=== PATIENT | male | born 1980 | race Caucasian/White ===

== ENCOUNTER → 2018-03-05 08:07 | Outpatient (CLI) | payer OTHER, SELFPAY ==
--- NOTE | 2018-03-05 08:07 | DT_ITS ---
This patient was seen during an EMR downtime February 26, 2018 - March 05, 2018. This patient may have a combination of paper and electronic documentation or all paper documentation. All documentation is viewable within the e-chart portion of [facility] for each patient visit.
[2018-03-05 12:33] LABS: Cholesterol 129 mg/dL (200); High Density Lipoprotein 32 mg/dL; Triglycerides 196 mg/dL; Very Low Density Lipoprotein 39 mg/dL (5-40)
[2018-03-05 12:45] LABS: Microalbumin,Random Urine 11.2 mg/L (NO RANGE EST.); Microalbumin:Creatinine Ratio 6.3 mg/g CRE (<30 mg/g CRE)
== END ==
PROVIDERS: Family Provider Family Medicine; PCP Family Medicine; Visit Provider Family Medicine
DX: Z00.01 Encounter for general adult medical examination with abnormal findings (principal); E78.5 Hyperlipidemia, unspecified; E66.01 Morbid (severe) obesity due to excess calories; R80.9 Proteinuria, unspecified
CPT/HCPCS: 36415; 80061; 82043; 82570

== ENCOUNTER → 2018-03-08 20:00 | Outpatient (CLI) | payer OTHER, SELFPAY | PROVIDERS: Family Provider Family Medicine; PCP Family Medicine; Visit Provider Family Medicine | DX: G47.33 Obstructive sleep apnea (adult) (pediatric) (principal) | CPT/HCPCS: 95811 ==

== ENCOUNTER → 2019-01-17 08:22 | Outpatient (CLI) | payer OTHER, SELFPAY ==
[2019-01-17 12:18] LABS: Absolute Lymphocyte Count 2.24 X10^3/ul (0.83-4.51); Absolute Neutrophil Count 5.1 X10^3/uL (2.0-7.7); Basophil# 0.03 X10^3/uL; Basophil% 0.3 % (0-1); Eosinophil# 0.44 X10^3/uL; Eosinophils% 5.1 % (0-5); Hematocrit 45.4 % (40-54); Hemoglobin 15.8 g/dl (13.0-16.5); Lymphocyte # 2.24 X10^3/ul (4.0); Lymphocyte % 25.9 % (19-41); Mean Corp Hgb Conc 34.8 g/gl (32-36); Mean Corpuscular Hgb 30.1 pg (27.0-32.0); Mean Corpuscular Volume 86.5 fL (80-94); Mean Platelet Vol. 10.4 fl (6.2-12.0); Monocyte# 0.79 X10^3/uL; Monocyte% 9.1 % (0-10); Neutrophil # 5.11 X10^3/uL (2.7-7.7); Neutrophil % 59.3 % (47-70); Platelet Count 259 K/mm3 (150-450); RBC Distribution Width CV 12.9 % (11.6-14.6); RBC Distribution Width SD 40.1 fl (35.1-43.9); Red Blood Count 5.25 M/mm3 (4.6-6.2); White Blood Count 8.6 K/mm3 (4.4-11.0)
[2019-01-17 12:20] LABS: POSITIVE COUNT NO; POSITIVE DIFFERENTIAL NO; POSITIVE MORPHOLOGY NO
[2019-01-17 12:44] LABS: Anion Gap 6 (5-15); BUN 17 mg/dL (7-18); BUN/Creat Ratio 15.9 RATIO (10-20); Calcium,Total 8.7 mg/dL (8.5-10.1); Chloride 107 mmol/L (98-107); Creatinine, Serum 1.07 mg/dL (0.70-1.30); EST Glomerular Filtration Rate 83 mL/min (>60); Est Glom Filt Rate - Afr Amer 100 mL/min (>60); Glucose 102 mg/dL (74-106); Sodium Level 140 mmol/L (136-145); Thyroid Stim Hormone (TSH) 2.32 uIU/mL (0.358-3.74)
== END ==
PROVIDERS: Family Provider Family Medicine; PCP Family Medicine; Visit Provider Family Medicine
DX: I10 Essential (primary) hypertension (principal); Z51.81 Encounter for therapeutic drug level monitoring
CPT/HCPCS: 36415; 80048; 80178; 84443; 85025

== ENCOUNTER → 2019-04-19 08:27 | Outpatient (CLI) | payer OTHER, SELFPAY ==
[2019-04-19 12:59] LABS: Cholesterol 165 mg/dL (200); High Density Lipoprotein 31 mg/dL; Thyroid Stim Hormone (TSH) 2.53 uIU/mL (0.358-3.74); Triglycerides 221 mg/dL; Very Low Density Lipoprotein 44 mg/dL (5-40)
[2019-04-19 13:05] LABS: Microalbumin,Random Urine 8.7 mg/L (NO RANGE EST.); Microalbumin:Creatinine Ratio 5.8 mg/g CRE (<30 mg/g CRE)
== END ==
PROVIDERS: Family Provider Family Medicine; PCP Family Medicine; Visit Provider Family Medicine
DX: I10 Essential (primary) hypertension (principal); E78.5 Hyperlipidemia, unspecified; R80.9 Proteinuria, unspecified; Z51.81 Encounter for therapeutic drug level monitoring
CPT/HCPCS: 36415; 80061; 80178; 82043; 82570; 84443

== ENCOUNTER → 2020-07-15 08:50 | Outpatient (CLI) | payer OTHER, SELFPAY ==
[2020-07-15 12:45] LABS: Vitamin D,25 Hydroxy 16.7 ng/mL
[2020-07-15 12:51] LABS: Absolute Lymphocyte Count 2.23 X10^3/uL (0.83-4.51); Absolute Neutrophil Count 4.5 X10^3/uL (2.0-7.7); Basophil# 0.06 X10^3/uL; Basophil% 0.7 % (0-1); Eosinophil# 0.69 X10^3/uL; Eosinophils% 8.4 % (0-5); Hematocrit 46.5 % (40-54); Hemoglobin 15.4 g/dL (13.0-16.5); Lymphocyte # 2.23 X10^3/ul (4.0); Lymphocyte % 27.3 % (19-41); Mean Corp Hgb Conc 33.1 g/dL (32-36); Mean Corpuscular Volume 90.5 fL (80-94); Monocyte# 0.62 X10^3/uL; Monocyte% 7.6 % (0-10); NRBC Flagged by Analyzer 0 % (0-5); Neutrophil # 4.54 X10^3/uL (2.7-7.7); Neutrophil % 55.5 % (47-70); Platelet Count 255 K/mm3 (150-450); RBC Distribution Width SD 43.4 fl (35.1-43.9); Red Blood Count 5.14 M/mm3 (4.6-6.2); White Blood Count 8.2 K/mm3 (4.4-11.0)
[2020-07-15 13:49] LABS: AST(SGOT) 25 U/L (15-37); Alanine Aminotransfer ALT/SGPT 54 U/L (16-61); Albumin, Serum 3.8 g/dL (3.2-5.0); Alkaline Phosphatase 73 U/L (45-117); Anion Gap 7 (5-15); BUN 13 mg/dL (7-18); BUN/Creat Ratio 14.8 RATIO (10-20); Calcium,Total 8.6 mg/dL (8.5-10.1); Chloride 105 mmol/L (98-107); Cholesterol 177 mg/dL (200); Creatinine, Serum 0.88 mg/dL (0.70-1.30); EST Glomerular Filtration Rate 103 mL/min (>60); Est Glom Filt Rate - Afr Amer 125 mL/min (>60); Globulin 3.9 g/dL (2.2-4.2); Glucose 76 mg/dL (74-106); High Density Lipoprotein 40 mg/dL; Potassium 3.8 mmol/L (3.5-5.1); Protein, Total 7.7 g/dL (6.4-8.2); Sodium Level 138 mmol/L (136-145); Thyroid Stim Hormone (TSH) 1.78 uIU/mL (0.358-3.74); Triglycerides 129 mg/dL; Very Low Density Lipoprotein 26 mg/dL (5-40)
== END ==
PROVIDERS: PCP Family Medicine; Visit Provider Family Medicine
DX: Z00.00 Encounter for general adult medical examination without abnormal findings (principal); R53.83 Other fatigue
CPT/HCPCS: 36415; 80053; 80061; 82306; 84443; 85025

== ENCOUNTER → 2022-12-15 | Outpatient (CLI) | payer BC, SELFPAY ==
[2022-12-15 12:29] LABS: Absolute Lymphocyte Count 2.18 X10^3/uL (0.83-4.51); Absolute Neutrophil Count 4.7 X10^3/uL (2.0-7.7); Basophil# 0.04 X10^3/uL; Basophil% 0.5 % (0-1); Eosinophil# 0.85 X10^3/uL; Eosinophils% 10.1 % (0-5); Hematocrit 42.7 % (40-54); Hemoglobin 14.6 g/dL (13.0-16.5); Lymphocyte # 2.18 X10^3/ul (0.83-4.51); Lymphocyte % 25.9 % (19-41); Mean Corp Hgb Conc 34.2 g/dL (32-36); Mean Corpuscular Hgb 30.5 pg (27.0-32.0); Mean Corpuscular Volume 89.3 fL (80-94); Mean Platelet Vol. 9.7 fl (6.2-12.0); Monocyte# 0.67 X10^3/uL; NRBC Flagged by Analyzer 0 % (0-5); Neutrophil # 4.67 X10^3/uL (2.7-7.7); Neutrophil % 55.4 % (47-70); Platelet Count 248 K/mm3 (150-450); RBC Distribution Width CV 13.3 % (11.6-14.6); RBC Distribution Width SD 43.8 fl (35.1-43.9); Red Blood Count 4.78 M/mm3 (4.6-6.2); White Blood Count 8.4 K/mm3 (4.4-11.0)
[2022-12-15 13:07] LABS: Hemoglobin A1c 5.1 % (3.8-5.6)
[2022-12-15 13:28] LABS: AST(SGOT) 16 U/L (15-37); Alanine Aminotransfer ALT/SGPT 23 U/L (16-61); Albumin, Serum 3.7 g/dL (3.2-5.0); Alkaline Phosphatase 80 U/L (45-117); Anion Gap 6 (5-15); BUN 17 mg/dL (7-18); BUN/Creat Ratio 19.9 RATIO (10-20); Calcium,Total 9.3 mg/dL (8.5-10.1); Chloride 109 mmol/L (98-107); Cholesterol 186 mg/dL (200); Creatinine, Serum 0.85 mg/dL (0.70-1.30); EST Glomerular Filtration Rate 105 mL/min (>60); Est Glom Filt Rate - Afr Amer 127 mL/min (>60); Globulin 3.6 g/dL (2.2-4.2); Glucose 98 mg/dL (74-106); High Density Lipoprotein 33 mg/dL; Potassium 4.4 mmol/L (3.5-5.1); Protein, Total 7.3 g/dL (6.4-8.2); Sodium Level 140 mmol/L (136-145); Triglycerides 118 mg/dL; Very Low Density Lipoprotein 24 mg/dL (5-40)
== END | disposition home or self-care (01) ==
LOC: BFHLAB 10:42
PROVIDERS: PCP Family Medicine; Referring Provider Family Medicine; Visit Provider Family Medicine
DX: Z00.00 Encounter for general adult medical examination without abnormal findings (principal)
CPT/HCPCS: 36415; 80053; 80061; 83036; 85025

== ENCOUNTER → 2023-07-12 | Outpatient (CLI) | payer BC, SELFPAY ==
--- NOTE | 2023-07-11 | LES_PTH ---
PATIENT: DENISA FRIAS LOC: [facility] U#:[id number] AGE/SX: 43/M ROOM: RE07/12/[address]: Dr. Lee Hollis MD : 1980 BED: DIS: 07/12/2023 SPEC #: [id number] RECD: 07/12/23 10:01 STATUS: TIFFANY REQ #: [id number] THOMPSON: 07/11/23 00:[address]: Lee Hollis DEPT: SURGICAL PATHOLOGY RECD BY: Aviva Mcdaniel ENTERED: 07/12/23 10:27 SP TYPE: Lesion OTHR DR: Dr. Clarke Akers, DO Tissues: Skin of eyelid, NOS Procedures: Surgery Specimen Level III HEADER OPERATION: Lesion excision PRE-OP DIAGNOSIS: Increased size with vascularity TISSUE SUBMITTED: Right upper eyelid MICROSCOPIC DIAGNOSIS Right upper eyelid, biopsy: Epidermal inclusion cyst. AM:amrita 07/13/2023 MICROSCOPIC DESCRIPTION Slides are reviewed. GROSS DESCRIPTION Received in fixative is one container labeled with the patient's name and designated RUL. The specimen consists of one fragment of barton-white skin measuring 0.3 x 0.2 x 0.1 cm. The specimen is totally submitted in one cassette. / SJ:rg 07/12/2023 TC:3 CPT: 99329
== END | disposition home or self-care (01) ==
LOC: LABSPEC 10:11
PROVIDERS: PCP Family Medicine; Referring Provider Ophthalmology; Visit Provider Ophthalmology
DX: L72.0 Epidermal cyst (principal)
CPT/HCPCS: 88304; 88305

== ENCOUNTER → 2024-06-26 | Outpatient (CLI) | payer BC, SELFPAY ==
[2024-06-26 12:01] LABS: Absolute Lymphocyte Count 1.88 X10^3/uL (0.83-4.51); Absolute Neutrophil Count 3.9 X10^3/uL (2.0-7.7); Basophil# 0.05 X10^3/uL; Basophil% 0.7 % (0-1); Eosinophil# 0.59 X10^3/uL; Eosinophils% 8.3 % (0-5); Hematocrit 44.2 % (40-54); Hemoglobin 14.9 g/dL (13.0-16.5); Lymphocyte # 1.88 X10^3/ul (0.83-4.51); Lymphocyte % 26.5 % (19-41); Mean Corp Hgb Conc 33.7 g/dL (32-36); Mean Corpuscular Hgb 29.4 pg (27.0-32.0); Mean Corpuscular Volume 87.4 fL (80-94); Mean Platelet Vol. 9.9 fl (6.2-12.0); Monocyte% 8.5 % (0-10); NRBC Flagged by Analyzer 0 % (0-5); Neutrophil # 3.93 X10^3/uL (2.7-7.7); Neutrophil % 55.4 % (47-70); Platelet Count 261 K/mm3 (150-450); RBC Distribution Width CV 13.1 % (11.6-14.6); Red Blood Count 5.06 M/mm3 (4.6-6.2); White Blood Count 7.1 K/mm3 (4.4-11.0)
[2024-06-26 12:14] LABS: ALB/GLOB Ratio 0.9 RATIO (0.9-2.4); AST(SGOT) 17 U/L (15-37); Alanine Aminotransfer ALT/SGPT 22 U/L (16-61); Albumin, Serum 3.4 g/dL (3.2-5.0); Alkaline Phosphatase 70 U/L (45-117); Anion Gap 5 (5-15); BUN 11 mg/dL (7-18); BUN/Creat Ratio 11.3 RATIO (10-20); Calcium,Total 8.9 mg/dL (8.5-10.1); Chloride 108 mmol/L (98-107); Cholesterol 161 mg/dL (200); Creatinine, Serum 0.98 mg/dL (0.70-1.30); EST Glomerular Filtration Rate 90 mL/min (>60); Est Glom Filt Rate - Afr Amer 108 mL/min (>60); Globulin 3.8 g/dL (2.2-4.2); Glucose 97 mg/dL (74-106); High Density Lipoprotein 38 mg/dL; Protein, Total 7.2 g/dL (6.4-8.2); Sodium Level 139 mmol/L (136-145); Triglycerides 111 mg/dL; Very Low Density Lipoprotein 22 mg/dL (5-40)
[2024-06-26 12:31] LABS: Hemoglobin A1c 5.2 % (3.8-5.6)
== END | disposition home or self-care (01) ==
LOC: BFHLAB 09:18
PROVIDERS: PCP Family Medicine; Referring Provider Family Medicine; Visit Provider Family Medicine
DX: Z00.00 Encounter for general adult medical examination without abnormal findings (principal)
CPT/HCPCS: 36415; 80053; 80061; 83036; 85025

== ENCOUNTER → 2025-04-09 | Outpatient (CLI) | payer BC, SELFPAY ==
[2025-04-09 12:05] LABS: Hematocrit 45.0 % (40-54); Hemoglobin 15.4 g/dL (13.0-16.5); Immature Granulocytes Count 0.030 X10^3/uL (0.0-0.0); Mean Corp Hgb Conc 34.2 g/dL (32-36); Mean Corpuscular Volume 85.9 fL (80-94); Mean Platelet Vol. 10.0 fl (6.2-12.0); NRBC Flagged by Analyzer 0 % (0-5); Platelet Count 250 K/mm3 (150-450); RBC Distribution Width CV 13.2 % (11.6-14.6); RBC Distribution Width SD 41.5 fl (35.1-43.9); Red Blood Count 5.24 M/mm3 (4.6-6.2); White Blood Count 8.2 K/mm3 (4.4-11.0)
[2025-04-09 12:51] LABS: AST(SGOT) 20 U/L (<=37); Alanine Aminotransfer ALT/SGPT 23 U/L (<=46); Albumin, Serum 4.1 g/dL (3.5-5.0); Alkaline Phosphatase 71 U/L (40-129); Anion Gap 13 (5-15); BUN 13 mg/dL (4-19); BUN/Creat Ratio 14.4 RATIO (10-20); Calcium,Total 9.2 mg/dL (7.6-11.0); Carbon Dioxide 20.2 mmol/L (21.0-32.0); Chloride 104 mmol/L (98-108); Globulin 3.1 g/dL (2.2-4.2); Glucose 83 mg/dL (70-99); Potassium 3.9 mmol/L (3.3-5.1)
--- OUTSIDE RECORDS SUMMARY | 2025-04-09 18:21 | XMS RPT_ITS | CCD ---
Author Organization [facility] Care Team Providers Care Hog Buyer Name Role Phone PROVIDER, UNKNOWN Unavailable Unavailable OswaldEmily roy Unavailable Unavailable Pozsgay, Emily Unavailable Unavailable Pozsgay, Emily Unavailable Unavailable PROVIDER, UNKNOWN Unavailable Unavailable Oswald, Emily Unavailable Unavailable Pozsgay, Emily Unavailable Unavailable PROVIDER, UNKNOWN Unavailable Unavailable Oswald, Emily Unavailable Unavailable Pozsgay, Emily Unavailable Unavailable PROVIDER, UNKNOWN Unavailable Unavailable OswaldEmily roy Unavailable Unavailable OswaldEmily roy Referring Unavailable OswaldEmily Attending Unavailable OswaldEmily roy Primary Care Unavailable Allergies Allergy Classification Reported Allergen(s) Allergy Type Date of Onset Reaction(s) Facility (1 source) walnut allergenic extract Drug Allergy 09-04-2017 Swelling [facility] (2 sources) nut - unspecified; Translations: [nut - unspecified] Allergy to substance 10-25-2022 Anaphylaxis [facility] (1 source) walnut Drug allergy (disorder) 09-04-2017 [facility] Repository Problems Active Problems Problem Classification Problem Date Documented Da te Episodic/Chronic Esophageal disorders (2 sources) Gastro-esophageal reflux disease without esophagitis; Translations: [Gastro-esophageal reflux disease without esophagitis] Onset: 10-30-2017 Chronic Mood disorders (2 sources) Major depressive disorder, single episode, unspecified; Translations: [Major depressive disorder, single episode, unspecified] Onset: 10-30-2017 Other nutritional; endocrine; and metabolic disorders (2 sources) Obesity, unspecified; Translations: [Obesity, unspecified] Onset: 10-30-2017 Chronic Unclassified (6 sources) Body mass index (BMI) 45.0-49.9, adult; Translations: [Obstructive sleep apnea (adult) (pediatric)] Onset: 09-08-2017 Chronic Past or Other Problems Problem Classification Problem Date Documented Date Episodic/Chronic Appendicitis and other appendiceal conditions (4 sources) Acute appendicitis with generalized peritonitis; Translations: [Acute appendicitis with localized peritonitis] Onset: 09-08-2017 Episodic Medical examination/evaluatio n (2 sources) Encounter for other preprocedural examination; Translations: [Encounter for other preprocedural examination] Onset: 10-23-2017 Episodic Other aftercare (2 sources) skilled nursing (current) use of antibiotics; Translations: [superintendent terminal (current) use of antibiotics] Onset: 09-08-2017 Episodic Screening or history of mental health and substance abuse (2 sources) Personal history of nicotine dependence; Translations: [Personal history of nicotine dependence] Onset: 10-30-2017 Episodic Varicose veins of lower extremity (2 sources) Asymptomatic varicose veins of unspecified lower extremity; Translations: [Asymptomatic varicose veins of unspecified lower extremity] Onset: 10-30-2017 Episodic Results Test Name Value Interpretation Reference Range Facility CBC W/Diff, Automatedon 10-0 Absolute Lymph 1.88 X10 3/uL Normal 0.83-4.51 [facility] Comment on above: Performed By: #### L 501.9985, L500.4100, L100.0100, L500.4050 #### [facility] [address] [facility] [place], [address] Absolute Neut 3.9 X10 3/uL Normal 2.0-7.7 [facility] Comment on above: Performed By: #### L 501.9985, L500.4100, L100.0100, L500.4050 #### [facility] [address] [place], [address] Basophils/100 WBC (Bld) 0.7 % Normal 0-1 [facility] Comment on above: Performed By: #### L 501.9985, L500.4100, L100.0100, L500.4050 #### [facility] [address] [place], [address] Eosinophils/100 WBC (Bld) 8.3 % High 0-5 [facility] Comment on above: Performed By: #### L 501.9985, L500.4100, L100.0100, L500.4050 #### [facility] [address] [place], [address] Erythrocyte distribution width (RBC) [Ratio] 13.1 % Normal 11.6-14.6 [facility] Comment on above: Performed By: #### L 501.9985, L500.4100, L100.0100, L500.4050 #### [facility] [address] [place], [address] Hematocrit (Bld) [Volume fraction] 44.2 % Normal 40-54 [facility] Comment on above: Performed By: #### L 501.9985, L500.4100, L100.0100, L500.4050 #### [facility] [address] [place], [address] Hemoglobin (Bld) [Mass/Vol] 14.9 g/dL Normal 13.0-16.5 [facility] Comment on above: Performed By: #### L 501.9985, L500.4100, L100.0100, L500.4050 #### [facility] [address] [place], [address] IG% 0.600 Normal 0.0-0.9 [facility] Comment on above: Result Comment: IG% - Immature Granulocytes (promyelocytes, myelocytes and metamyelocytes) > 1% indicates that a LEFT SHIFT is Present. Performed By: #### L 501.9985, L500.4100, L100.0100, L500.4050 #### [facility] [address] [place], [address] Lymphocytes/100 WBC (Bld) 26.5 % Normal 19-41 [facility] Comment on above: Performed By: #### L 501.9985, L500.4100, L100.0100, L500.4050 #### [facility] [address] [place], [address] MCH (RBC) [Entitic mass] 29.4 pg Normal 27.0-32.0 [facility] Comment on above: Performed By: #### L 501.9985, L500.4100, L100.0100, L500.4050 #### [facility] [address] [place], [address] MCHC (RBC) [Mass/Vol] 33.7 g/dL Normal 32-36 [facility] Comment on above: Performed By: #### L 501.9985, L500.4100, L100.0100, L500.4050 #### [facility] [address] [place], [address] MCV (RBC) [Entitic vol] 87.4 fL Normal 80-94 [facility] Comment on above: Performed By: #### L 501.9985, L500.4100, L100.0100, L500.4050 #### [facility] [address] [place], [address] Monocytes/100 WBC (Bld) 8.5 % Normal 0-10 [facility] Comment on above: Performed By: #### L 501.9985, L500.4100, L100.0100, L500.4050 #### [facility] [address] [place], [address] Neutrophils/100 WBC (Bld) 55.4 % Normal 47-70 [facility] Comment on above: Performed By: #### L 501.9985, L500.4100, L100.0100, L500.4050 #### [facility] [address] [place], [address] Nucleated RBC (Bld) [#/Vol] 0 10*3/uL Normal 0-5 [facility] Comment on above: Performed By: #### L 501.9985, L500.4100, L100.0100, L500.4050 #### [facility] [address] [place], [address] Platelet mean volume (Bld) [Entitic vol] 9.9 fL Normal 6.2-12.0 [facility] Comment on above: Performed By: #### L 501.9985, L500.4100, L100.0100, L500.4050 #### [facility] [address] [place], [address] Platelets (Bld) [#/Vol] 261 10*3/uL Normal 150-450 [facility] Comment on above: Performed By: #### L 501.9985, L500.4100, L100.0100, L500.4050 #### [facility] [address] [place], [address] RBC (Bld) [#/Vol] 5.06 10*6/uL Normal 4.6-6.2 [facility] Comment on above: Performed By: #### L 501.9985, L500.4100, L100.0100, L500.4050 #### [facility] [address] [place], [address] RDW SD 42.0 fl Normal 35.1-43.9 [facility] Comment on above: Performed By: #### L 501.9985, L500.4100, L100.0100, L500.4050 #### [facility] [address] [place], [address] WBC (Bld) [#/Vol] 7.1 10*3/uL Normal 4.4-11.0 [facility] Comment on above: Performed By: #### L 501.9985, L500.4100, L100.0100, L500.4050 #### [facility] [address] [place], [address] Comprehensive Metabolic Prof ilon 06-26-2024 Albumin [Mass/Vol] 3.4 g/dL Normal 3.2-5.0 [facility] Comment on above: Performed By: #### L 501.9985, L500.4100, L100.0100, L500.4050 #### [facility] [address] [place], [address] Albumin/Globulin [Mass ratio] 0.9 {ratio} Normal 0.9-2.4 [facility] Comment on above: Performed By: #### L 501.9985, L500.4100, L100.0100, L500.4050 #### [facility] [address] [place], [address] ALK P 70 U/L Normal 45-117 [facility] Comment on above: Performed By: #### L 501.9985, L500.4100, L100.0100, L500.4050 #### [facility] [address] [place], [address] ALT [Catalytic activity/Vol] 22 U/L Normal 16-61 [facility] Comment on above: Performed By: #### L 501.9985, L500.4100, L100.0100, L500.4050 #### [facility] [address] [place], [address] AST [Catalytic activity/Vol] 17 U/L Normal 15-37 [facility] Comment on above: Performed By: #### L 501.9985, L500.4100, L100.0100, L500.4050 #### [facility] [address] [place], [address] Bilirubin [Mass/Vol] 0.20 mg/dL Normal 0.20-1.00 [facility] Comment on above: Result Comment: For patients on eltrombopag therapy, use of Dimension [place] TBIL is not recommended. Performed By: #### L 501.9985, L500.4100, L100.0100, L500.4050 #### [facility] [address] [place], [address] BUN/CRE 11.3 RATIO Normal 10-20 [facility] Comment on above: Performed By: #### L 501.9985, L500.4100, L100.0100, L500.4050 #### [facility] [address] [place], [address] CA,Total 8.9 mg/dL Normal 8.5-10.1 [facility] Comment on above: Performed By: #### L 501.9985, L500.4100, L100.0100, L500.4050 #### [facility] [address] [place], [address] Chloride [Moles/Vol] 108 mmol/L High 98-107 [facility] Comment on above: Performed By: #### L 501.9985, L500.4100, L100.0100, L500.4050 #### [facility] [address] [place], [address] CO2 [Moles/Vol] 26.0 mmol/L Normal 21.0-32.0 [facility] Comment on above: Performed By: #### L 501.9985, L500.4100, L100.0100, L500.4050 #### [facility] [address] [place], [address] Creatinine [Mass/Vol] 0.98 mg/dL Normal 0.70-1.30 [facility] Comment on above: Result Comment: The validity of the calculated GFR GFRAA in patients over 70 years has not been determined. Clinical correlation is essential. Performed By: #### L 501.9985, L500.4100, L100.0100, L500.4050 #### [facility] [address] [place], [address] EST GFR - AA 108 mL/min Normal >60 [facility] Comment on above: Result Comment: Afri can Malagasy GFR Calc Performed By: #### L 501.9985, L500.4100, L100.0100, L500.4050 #### [facility] [address] [place], [address] GAP 5 Normal 5-15 [facility] Comment on above: Performed By: #### L 501.9985, L500.4100, L100.0100, L500.4050 #### [facility] [address] [place], [address] GFR/1.73 sq M.predicted among non-blacks MDRD (S/P/Bld) [Vol rate/Area] 90 mL/min/{1.73_m2} Normal >60 [facility] Comment on above: Result Comment: Non- GFR Calc Performed By: #### L 501.9985, L500.4100, L100.0100, L500.4050 #### [facility] [address] [place], [address] Globulin (S) [Mass/Vol] 3.8 g/dL Normal 2.2-4.2 [facility] Comment on above: Performed By: #### L 501.9985, L500.4100, L100.0100, L500.4050 #### [facility] [address] [place], [address] Glucose [Mass/Vol] 97 mg/dL Normal 74-106 [facility] Comment on above: Performed By: #### L 501.9985, L500.4100, L100.0100, L500.4050 #### [facility] [address] [place], [address] Potassium [Moles/Vol] 4.0 mmol/L Normal 3.5-5.1 [facility] Comment on above: Performed By: #### L 501.9985, L500.4100, L100.0100, L500.4050 #### [facility] [address] [place], [address] Sodium [Moles/Vol] 139 mmol/L Normal 136-145 [facility] Comment on above: Performed By: #### L 501.9985, L500.4100, L100.0100, L500.4050 #### [facility] [address] [place], [address] T PROT 7.2 g/dL Normal 6.4-8.2 [facility] Comment on above: Performed By: #### L 501.9985, L500.4100, L100.0100, L500.4050 #### [facility] [address] [place], [address] Urea nitrogen [Mass/Vol] 11 mg/dL Normal 7-18 [facility] Comment on above: Performed By: #### L 501.9985, L500.4100, L100.0100, L500.4050 #### [facility] [address] [place], [address] Hemoglobin A1con 06-26-2024 HbA1c (Bld) [Mass fraction] 5.2 % Normal 3.8-5.6 [facility] Comment on above: Result Comment: Norm al < 5.7 % Prediabetic 5.7 - 6.4 % Diabetic >or= 6.5 % Please note range changes. Performed By: #### L 501.9985, L500.4100, L100.0100, L500.4050 #### [facility] [address] [place], [address] Lipid Profileon 06-26-2024 Cholesterol [Mass/Vol] 161 mg/dL Normal 200 [facility] Comment on above: Result Comment: <200 mg/dL Desirable 200-240 mg/dL Borderline >240 mg/dL High Risk Performed By: #### L 501.9985, L500.4100, L100.0100, L500.4050 #### [facility] [address] [place], [address] Cholesterol in HDL [Mass/Vol] 38 mg/dL Low [facility] Comment on above: Result Comment: The drugs N-Acetylcysteine and Metamizole may falsely depress this assay. Reference Range HDL <40 mg/dL Low HDL Cholesterol HDL >or= 60 mg/dL High HDL Cholesterol Performed By: #### L 501.9985, L500.4100, L100.0100, L500.4050 #### [facility] [address] [place], [address] Cholesterol in LDL [Mass/Vol] 101 mg/dL Normal 0-130 [facility] Comment on above: Performed By: #### L 501.9985, L500.4100, L100.0100, L500.4050 #### [facility] [address] [place], [address] Cholesterol in VLDL [Mass/Vol] 22 mg/dL Normal 5-40 [facility] Comment on above: Performed By: #### L 501.9985, L500.4100, L100.0100, L500.4050 #### [facility] [address] [place], [address] Triglyceride [Mass/Vol] 111 mg/dL Normal [facility] Comment on above: Result Comment: The drugs N-Acetylcysteine and Metamizole may falsely depress this assay. Serum Triglycerides Reference Interval Normal <150 mg/dL Borderline high 150 - 199 mg/dL High 200 - 499 mg/dL Very High > or = 500 mg/dL Performed By: #### L 501.9985, L500.4100, L100.0100, L500.4050 #### [facility] [address] [place], [address] Surgical Pathologyon 02-05-2 018 Surgical Pathology [id number] [facility] PATHOLOGY AND LABORATORY MEDICINE [address] [place] [address] [place] [address] FINAL SURGICAL PATHOLOGY REPORT NAME: DENISA FRIAS .O.B.: 1980 37 Y M BILLJONH NO.: [id number] PAC1O 1PAC [id number] PROCEDURE 10/30/2017 DATE:SURGEON: EMILY HOOD DO RECEIVED 10/30/2017 DATE:ATTENDING: EMILY HOOD DO REPORT DATE: 11/01/2017 COPIES TO: DIA GNOSIS:APPENDIX - ORGANIZING TRANSMURAL CHRONIC INFLAMMATION WITH FOREIGN BODYTYPE GIANT CELL REACTION.FOCAL ACUTE AND CHRONIC INFLAMMATION IN [place].NEGATIVE FOR MALIGNANCY.MT/MT JANINE BURGOS M.D. CL INICAL INFORMATION: Acute perforated appendicitisSPECIMEN: APPENDIX, INCIDENTAL ____GROSS DESCRIPTION:AppendixRece ived in formalin is a possible appendix measuring approximately 3.5x 1.0 cm. The mesoappendix measures 4.0 by up to 1.5 cm. There is astapled suture line present at the proximal line of resection. Upontransection, the appendix demonstrates a pinpoint lumen with a tanmucosa. Centrally there is a tbywtut-wsg-bbyhuwk defect identifiedmeasuring approximately 0.6 cm. No evidence of fecalith or tumor isidentified. Multiple sales representative canvas products sections are submitted in twocassettes. (bits ss, 2) JCK/MCDDisclaimer: The following statement applies to allimmunohistochemistry, in situ hybridization, molecular studies, andimmunofluorescence testing.The use of one or more reagents in the above tests is regulated as ananalyte specific reagent (ASR). These tests were developed and theirperformance characteristics determined by the clinical laboratories [facility]. They have not been cleared by the [place] Food and DrugAdministration (FDA). The FDA has determined that such clearance orapproval is not necessary.All the above immunostains were performed on paraffin embedded tissue.Appropriate positive and negative controls (where applicable) were runin parallel with the patient's specimen; these controls showed expectedstaining pattern, with acceptable intensity of staining.Immunohistochemic al assays have not been validated on decalcifiedtissues. Results should be interpreted with caution given the raisedpossibility of false negativity on decalcified specimens.Professional Performing Location: [address] [address] [place] [address]. DEPARTMENT OF PATHOLOGY AND LABORATORY MEDICINE [place], [place] [address] Normal [facility] Comment on above: Performed By: #### P T/AP, HEMDF ####[address] [place] [address] Basic Metabolic Panelon 09-26 Anion gap 10 mmol/L Normal [facility] Comment on above: Performed By: #### P T/AP, HEMDF ####[address] [place] [address] Calcium 10.0 mg/dL Normal 8.4-10.2 [facility] Comment on above: Performed By: #### P T/AP, HEMDF ####[address] [place] [address] CO2 29 mmol/L Normal 22-30 [facility] Comment on above: Performed By: #### P T/AP, HEMDF ####[address] [place] [address] Glucose mass conc 61 mg/dL Low 70-100 [facility] Comment on above: Performed By: #### P T/AP, HEMDF ####[address] [place] [address] Urea nitrogen 17 mg/dL Normal 7-20 [facility] Comment on above: Performed By: #### P T/AP, HEMDF ####[address] [place] [address] Creatinine 0.90 mg/dL Normal 0.52-1.25 [facility] Comment on above: Performed By: #### P T/AP, HEMDF ####[address] [place] [address] eGFR (black) mL/min/{1.73_m2} Normal >60 [facility] Comment on above: Performed By: #### P T/AP, HEMDF ####[address] [place] [address] eGFR (non-black) mL/min/{1.73_m2} Normal >60 [facility] Comment on above: Result Comment: Sour ce- MDRD equation with creatinine calibration to IDMS(NKDEP)eGFR not recommended for drug dose adjustment Performed By: #### P T/AP, HEMDF ####[address] [place] [address] Potassium molar conc 3.7 mmol/L Normal 3.5-5.1 [facility] Comment on above: Performed By: #### P T/AP, HEMDF ####[address] [place] [address] Sodium 141 mmol/L Normal 137-145 [facility] Comment on above: Performed By: #### P T/AP, HEMDF ####[address] [place] [address] Chloride 102 mmol/L Normal 98-107 [facility] Comment on above: Performed By: #### P T/AP, HEMDF ####[address] [place] [address] Hemoglobinon 10-23-2017 Hematocrit (HCT) 45.9 % Normal 40.0-52.0 [facility] Comment on above: Performed By: #### P T/AP, HEMDF ####[id number] [place] [address] Hemoglobin mass conc (Bld) 15.6 g/dL Normal 13.0-18.0 [facility] Comment on above: Performed By: #### P T/AP, HEMDF ####[address] [place] [address] CT Abdomen/Pelvis w/ Contras ton 09-27-2017 CT Abdomen/Pelvis w/ Contrast Patient Name: DENISA FRIAS CT Exam Date/Time 09/26/2017 14:40:[address] Abdomen/Pelvis w/ IV Contrast (IV Onl Ordering Physician NOEMI ARBOLEDA HEATHER L Accession Number [id number] CPT4 Codes 17394 (CT Abdomen/Pelvis w/ IV Contrast (IV Onl), Q9967 () Reason For Exam Acute appendicitis with generalized peritonitis Report CLINICAL HISTORY: Acute appendicitis with generalized peritonitis COMPARISON: CT drain placement performed 09/09/2017. Technique: [address] images were obtained of the abdomen and pelvis after the uneventful IV administration of 75 mL of Isovue-370. Images were reformatted in coronal and sagittal projections. FINDINGS: Lung bases: 7 mm noncalcified pulmonary nodule lateral right lower lobe (series 3 image number 10). Major organs: The liver, gallbladder, spleen, pancreas, adrenal glands, and kidneys are normal. Bowel: The bowel is of normal caliber throughout without evidence of wall thickening or obstruction. Inflammatory changes within the right lower quadrant have decreased compared to the prior 09/09/2017 examination. The right lower quadrant drain has been removed. Currently, no drainable fluid collections are identified. Lymph nodes and Mesentery: There are no enlarged intra-abdominal lymph nodes or free fluid. The mesentery is normal and there is no free air. Vasculature: The abdominal aorta is normal in caliber without evidence of aneurysmal dilatation. Incidental note is made of a retroaortic left renal vein. Soft Tissues and Osseous structures: No evidence of fracture. No suspicious osseous lesions. Pelvis: Major organs: The rectum, sigmoid colon, bladder are normal. Lymph nodes: There are no enlarged intrapelvic lymph nodes or free fluid. Soft tissues and Osseous structures: No acute fracture. No suspicious osseous lesions. IMPRESSION: ABDOMEN: Status post removal of right lower quadrant abdominal drain. Inflammatory changes within the right lower quadrant have decreased compared to 09/09/2017 although the appendix is not well visualized. No drainable fluid collections are seen. 7 mm noncalcified pulmonary nodule within the right lower lobe. There are no prior studies for comparison. Per the 2017 Lucero criteria for incidentally discovered pulmonary nodules, if the patient is low risk, a follow-up CT is recommended in 6-12 months then consider an additional CT at 18 and 24 months. If the patient is high risk, a follow-up CT in 6-12 months is recommended with a follow-up CT in 18 - 24 months. PELVIS: No acute intrapelvic disease process. Report Dictated on Final Dictated: 09/26/2017 10:02 pm Dictating Physician: MD SPRING YUN ROBERT Signed Date and Time: 09/26/2017 10:13 pm Signed by: MD SPRING YUN ROBERT Transcribed Date and Time: 09/26/2017 10:02 Normal [facility] Basic Metabolic Panelon 12-1 Anion gap 8 mmol/L Normal [facility] Comment on above: Performed By: #### P T/AP, HEMDF ####[address] [place] [address] Calcium 8.5 mg/dL Normal 8.4-10.2 [facility] Comment on above: Performed By: #### P T/AP, HEMDF ####[address] [place] [address] CO2 25 mmol/L Normal 22-30 [facility] Comment on above: Performed By: #### P T/AP, HEMDF ####[address] [place] [address] Glucose mass conc 83 mg/dL Normal 70-100 [facility] Comment on above: Performed By: #### P T/AP, HEMDF ####[address] [place] [address] Urea nitrogen 10 mg/dL Normal 7-20 [facility] Comment on above: Performed By: #### P T/AP, HEMDF ####[address] [place] [address] Creatinine 0.76 mg/dL Normal 0.52-1.25 [facility] Comment on above: Performed By: #### P T/AP, HEMDF ####[address] [place] [address] eGFR (black) mL/min/{1.73_m2} Normal >60 [facility] Comment on above: Performed By: #### P T/AP, HEMDF ####[address] [place] [address] eGFR (non-black) mL/min/{1.73_m2} Normal >60 [facility] Comment on above: Result Comment: Sour ce- MDRD equation with creatinine calibration to IDMS(NKDEP)eGFR not recommended for drug dose adjustment Performed By: #### P T/AP, HEMDF ####[address] [place] [address] Chloride 103 mmol/L Normal 98-107 [facility] Comment on above: Performed By: #### P T/AP, HEMDF ####[address] [place] [address] Potassium molar conc 3.8 mmol/L Normal 3.5-5.1 [facility] Comment on above: Performed By: #### P T/AP, HEMDF ####[address] [place] [address] Sodium 137 mmol/L Normal 137-145 [facility] Comment on above: Performed By: #### P T/AP, HEMDF ####[address] [place] [address] Hemogram w/ Autodiffon 09-11 Abs Baso Cnt 0.1 10*3/uL Normal 0.0-0.2 [facility] Comment on above: Performed By: #### P T/AP, HEMDF ####[address] [address] Basophils/100 WBC Auto (Bld) 0.6 % Normal [facility] Comment on above: Performed By: #### P T/AP, HEMDF ####[address] [place] [address] Eosinophils 0.4 10*3/uL Normal 0.0-0.5 [facility] Comment on above: Performed By: #### P T/AP, HEMDF ####[address] [address] Eosinophils/100 leukocytes 4.4 % Normal [facility] Comment on above: Performed By: #### P T/AP, HEMDF ####[address] [address] Erythrocyte distribution width Auto Ratio (RBC) 13.6 % Normal 11.5-14.5 [facility] Comment on above: Performed By: #### P T/AP, HEMDF ####[address] [address] Erythrocytes (RBC) 4.00 10*6/uL Low 4.40-5.90 [facility] Comment on above: Performed By: #### P T/AP, HEMDF ####[address] [address] Granulocytes/100 WBC (Bld) 63.5 % Normal [facility] Comment on above: Performed By: #### P T/AP, HEMDF ####[address] [address] Hematocrit (HCT) 36.1 % Low 40.0-52.0 [facility] Comment on above: Performed By: #### P T/AP, HEMDF ####[address] [address] Hemoglobin mass conc (Bld) 12.2 g/dL Low 13.0-18.0 [facility] Comment on above: Performed By: #### P T/AP, HEMDF ####[address] [place] [address] Lymphocytes 2.2 10*3/uL Normal 1.0-4.3 [facility] Comment on above: Performed By: #### P T/AP, HEMDF ####[address] [place] [address] Lymphocytes/100 leukocytes 21.7 % Normal [facility] Comment on above: Performed By: #### P T/AP, HEMDF ####[address] [place] [address] MCH 30.5 pg Normal 26.0-34.0 [facility] Comment on above: Performed By: #### P T/AP, HEMDF ####[address] [address] MCHC mass conc (RBC) 33.8 % Normal 32.0-36.0 [facility] Comment on above: Performed By: #### P T/AP, HEMDF ####[address] [place] [address] MCV 90.1 fL Normal 80.0-98.0 [facility] Comment on above: Performed By: #### P T/AP, HEMDF ####[address] [place] [address] Monocytes 1.0 10*3/uL High 0.0-0.8 [facility] Comment on above: Performed By: #### P T/AP, HEMDF ####[address] [place] [address] Monocytes/100 leukocytes 9.8 % Normal [facility] Comment on above: Performed By: #### P T/AP, HEMDF ####[address] [place] [address] Neutrophils 6.4 10*3/uL Normal 1.8-7.0 [facility] Comment on above: Performed By: #### P T/AP, HEMDF ####[address] [place] [address] Platelet mean volume (PMV) 8.1 fL Normal 7.4-10.4 [facility] Comment on above: Performed By: #### P T/AP, HEMDF ####[address] [place] [address] Platelets 251 10*3/uL Normal 140-440 [facility] Comment on above: Performed By: #### P T/AP, HEMDF ####[address] [place] [address] WBC (Leukocytes) 10.0 10*3/uL Normal 3.6-10.7 [facility] Comment on above: Performed By: #### P T/AP, HEMDF ####[address] [place] [address] Magnesiumon 09-11-2017 Magnesium 2.0 mg/dL Normal 1.6-2.3 [facility] Comment on above: Performed By: #### P T/AP, HEMDF ####[address] [place] [address] Basic Metabolic Panelon 08-25 Anion gap 9 mmol/L Normal [facility] Comment on above: Performed By: #### P T/AP, HEMDF ####[address] [place] [address] Calcium 8.4 mg/dL Normal 8.4-10.2 [facility] Comment on above: Performed By: #### P T/AP, HEMDF ####[address] [place] [address] CO2 26 mmol/L Normal 22-30 [facility] Comment on above: Performed By: #### P T/AP, HEMDF ####[address] [place] [address] Creatinine 0.82 mg/dL Normal 0.52-1.25 [facility] Comment on above: Performed By: #### P T/AP, HEMDF ####[address] [place] [address] eGFR (black) mL/min/{1.73_m2} Normal >60 [facility] Comment on above: Performed By: #### P T/AP, HEMDF ####[address] [place] [address] eGFR (non-black) mL/min/{1.73_m2} Normal >60 [facility] Comment on above: Result Comment: Sour ce- MDRD equation with creatinine calibration to IDMS(NKDEP)eGFR not recommended for drug dose adjustment Performed By: #### P T/AP, HEMDF ####[address] [place] [address] Glucose mass conc 68 mg/dL Low 70-100 [facility] Comment on above: Performed By: #### P T/AP, HEMDF ####[address] [place] [address] Urea nitrogen 12 mg/dL Normal 7-20 [facility] Comment on above: Performed By: #### P T/AP, HEMDF ####[address] [place] [address] Chloride 105 mmol/L Normal 98-107 [facility] Comment on above: Performed By: #### P T/AP, HEMDF ####[address] [place] [address] Potassium molar conc 3.7 mmol/L Normal 3.5-5.1 [facility] Comment on above: Performed By: #### P T/AP, HEMDF ####[address] [place] [address] Sodium 140 mmol/L Normal 137-145 [facility] Comment on above: Performed By: #### P T/AP, HEMDF ####[address] [place] [address] Hemogram w/ Autodiffon 09-10 Abs Baso Cnt 0.1 10*3/uL Normal 0.0-0.2 [facility] Comment on above: Performed By: #### P T/AP, HEMDF ####[address] [place] [address] Basophils/100 WBC Auto (Bld) 0.4 % Normal [facility] Comment on above: Performed By: #### P T/AP, HEMDF ####[address] [place] [address] Eosinophils 0.2 10*3/uL Normal 0.0-0.5 [facility] Comment on above: Performed By: #### P T/AP, HEMDF ####[address] [place] [address] Eosinophils/100 leukocytes 1.2 % Normal [facility] Comment on above: Performed By: #### P T/AP, HEMDF ####[address] [place] [address] Erythrocyte distribution width Auto Ratio (RBC) 13.2 % Normal 11.5-14.5 [facility] Comment on above: Performed By: #### P T/AP, HEMDF ####[address] [place] [address] Erythrocytes (RBC) 4.19 10*6/uL Low 4.40-5.90 [facility] Comment on above: Performed By: #### P T/AP, HEMDF ####[address] [place] [address] Granulocytes/100 WBC (Bld) 73.8 % Normal [facility] Comment on above: Performed By: #### P T/AP, HEMDF ####[address] [place] [address] Hematocrit (HCT) 37.6 % Low 40.0-52.0 [facility] Comment on above: Performed By: #### P T/AP, HEMDF ####[address] [place] [address] Hemoglobin mass conc (Bld) 12.8 g/dL Low 13.0-18.0 [facility] Comment on above: Performed By: #### P T/AP, HEMDF ####[address] [place] [address] Lymphocytes 2.1 10*3/uL Normal 1.0-4.3 [facility] Comment on above: Performed By: #### P T/AP, HEMDF ####[address] [address] Lymphocytes/100 leukocytes 14.6 % Normal [facility] Comment on above: Performed By: #### P T/AP, HEMDF ####[address] [address] MCH 30.5 pg Normal 26.0-34.0 [facility] Comment on above: Performed By: #### P T/AP, HEMDF ####[address] [place] [address] MCHC mass conc (RBC) 34.1 % Normal 32.0-36.0 [facility] Comment on above: Performed By: #### P T/AP, HEMDF ####[address] [address] MCV 89.5 fL Normal 80.0-98.0 [facility] Comment on above: Performed By: #### P T/AP, HEMDF ####[address] [address] Monocytes 1.4 10*3/uL High 0.0-0.8 [facility] Comment on above: Performed By: #### P T/AP, HEMDF ####[address] [address] Monocytes/100 leukocytes 10.0 % Normal [facility] Comment on above: Performed By: #### P T/AP, HEMDF ####[address] [address] Neutrophils 10.6 10*3/uL High 1.8-7.0 [facility] Comment on above: Performed By: #### P T/AP, HEMDF ####[address] [address] Platelet mean volume (PMV) 8.3 fL Normal 7.4-10.4 [facility] Comment on above: Performed By: #### P T/AP, HEMDF ####[address] [address] Platelets 238 10*3/uL Normal 140-440 [facility] Comment on above: Performed By: #### P T/AP, HEMDF ####[address] [place] [address] WBC (Leukocytes) 14.3 10*3/uL High 3.6-10.7 [facility] Comment on above: Performed By: #### P T/AP, HEMDF ####[address] [place] [address] Magnesiumon 09-10-2017 Magnesium 2.3 mg/dL Normal 1.6-2.3 [facility] Comment on above: Performed By: #### P T/AP, HEMDF ####[address] [address] Basic Metabolic Panelon 08-25 Calcium 8.2 mg/dL Low 8.4-10.2 [facility] Comment on above: Performed By: #### P T/AP, BMP3, MG3, HEMDFMDIFF ####[address] [address] Glucose mass conc 63 mg/dL Low 70-100 [facility] Comment on above: Performed By: #### P T/AP, BMP3, MG3, HEMMD OSEIIFF ####[address] [address] Anion gap 11 mmol/L Normal [facility] Comment on above: Performed By: #### P T/AP, BMP3, MG3, HEMDF, IFF ####[address] [place] [address] CO2 26 mmol/L Normal 22-30 [facility] Comment on above: Performed By: #### P T/AP, BMP3, MG3, HEMDF, IFF ####[address] [address] Creatinine 0.88 mg/dL Normal 0.52-1.25 [facility] Comment on above: Performed By: #### P T/AP, BMP3, MG3, HEMDF, MDIFF ####[address] [address] eGFR (black) mL/min/{1.73_m2} Normal >60 [facility] Comment on above: Performed By: #### P T/AP, BMP3, MG3, MD MARIA EUGENIAIFF ####[address] [place] [address] eGFR (non-black) mL/min/{1.73_m2} Normal >60 [facility] Comment on above: Result Comment: Sour ce- MDRD equation with creatinine calibration to IDMS(NKDEP)eGFR not recommended for drug dose adjustment Performed By: #### P T/AP, BMP3, MG3, MD MARIA EUGENIAIFF ####[address] [place] [address] Urea nitrogen 13 mg/dL Normal 7-20 [facility] Comment on above: Performed By: #### P T/AP, BMP3, MG3, MD MARIA EUGENIAIFF ####[address] [address] Chloride 102 mmol/L Normal 98-107 [facility] Comment on above: Performed By: #### P T/AP, BMP3, MG3, MD MARIA EUGENIAIFF ####[address] [place] [address] Potassium molar conc 4.3 mmol/L Normal 3.5-5.1 [facility] Comment on above: Performed By: #### P T/AP, BMP3, MG3, MD MARIA EUGENIAIFF ####[address] [place] [address] Sodium 138 mmol/L Normal 137-145 [facility] Comment on above: Performed By: #### P T/AP, BMP3, MG3, MD MARIA EUGENIAIFF ####[address] [place] [address] CT Drainage Peritoneal/Retro peritonealon 09-09-2017 CT Drainage Peritoneal/Retrope ritoneal Patient Name: DENISA FRIAS CT Exam Date/Time 09/09/2017 16:49:[address] Drainage Peritoneal Ordering Physician Hiwot BONNER JENNIFER Accession Number [id number] CPT4 Codes 23911 (CT Drainage Peritoneal/Retroperitoneal ), 6[address]31 () Reason For Exam appendiceal abscess Report CLINICAL HISTORY: Appendiceal abscess. Procedures: CT-guided right lower quadrant drain placement Physician: Dr. Spring MEDICATIONS: 2 mg Versed IV, 100 mcg fentanyl IV, local lidocaine. EBL: Minimal. Contrast: None Specimen sent: 2 mL purulent fluid COMPLICATIONS: None Fluoroscopy Time: None Procedural details: Prior to the procedure red rules were performed which included patient name, date of , and procedure type. All of the risk, benefits, and alternative treatments were explained to the patient and informed consent was obtained and documented. The patient was brought into the CT scanner and placed in a supine position. An audible timeout was performed. Conscious sedation was performed by a trained sedation nurse/trained independent observer under my direct supervision. Intraservice time was [address] scan of the patient's pelvis was performed and a suitable site for drain placement was identified. The overlying skin was prepped and draped in the usual sterile fashion. The overlying subcutaneous cutaneous tissues were anesthetized with one percent lidocaine. Under intermittent CT guidance, an 18-gauge Chiba needle was advanced into a collection in the right lower quadrant. There was return of purulent fluid. A 0.035 short Amplatz wire was advanced through the needle and formed within the collection. Following this, a 10 Persian pigtail catheter was advanced over the wire and formed within the collection. Repeat CT scanning confirmed position of the catheter. The catheter was then sutured to the patient's skin using 2-0 suture. The patient tolerated the procedure well. There were no immediate complications. IMPRESSION: Successful uncomplicated CT-guided right lower quadrant drain placement. The catheter should be hooked to bag drainage and flushed twice daily with 10 mL normal saline. Report Dictated on Final Dictated: 09/09/2017 6:09 pm Dictating Physician: MD SPRING YUN ROBERT Signed Date and Time: 09/09/2017 6:58 pm Signed by: MD SPRING YUN ROBERT Transcribed Date and Time: 09/09/2017 6:09 Normal [facility] 09-09-[address] [facility] Patient name: DENISA FRIAS Estela.R.N.: [id number] : 1980 Age: 37 Sex: M Ord. Physician: SAM COFFMAN Location: [address] [place] [address] Copy to: SAM COFFMAN DISCHARGED: dm. Date: 09/08/17 MICROBIOLOGYORDER#: [id number] COLLECTED: 09/09/17 17:38SOURCE: Sterile fluid ABDOMINAL FLUID RECEIVED: 09/09/17 17:38STAIN GRAM FINAL 09/09/17 23:12111/10/16Many polymorphonuclear cells/lpf.Many gram positive cocci.Many gram positive bacilli.Many gram negative bacilli.CULTURE Many Streptococcus anginosus S. anginosus ANTIBIOTICS AGUSTIN INTRP A mpicillin <=0.25 S Ceftriaxone 0.5 S Clindamycin >=1 R Vancomycin 1 S S =SENSITIVE I=INTERMEDIATE R=RESISTANT S-DD=SUSCEPTIBLE DOSE DEPENDENT AGUSTIN VALUES = ug/mL ____ Normal [facility] Comment on above: Performed By: #### P T/AP, HEMDF ####[address] [address] [place] [address] CULTURE ANAEROBEon 7 CULTURE ANAEROBE [facility] Patient name: DENISA FRIAS M.R.N.: [id number] : 1980 Age: 37 Sex: M Ord. Physician: SAM COFFMAN Location: [address] [place] [address] Copy to: SAM COFFMAN DISCHARGED: . Date: 09/08/17 MICROBIOLOGYORDER#: [id number] COLLECTED: 09/09/17 17:38SOURCE: Sterile fluid ABDOMINAL FLUID RECEIVED: 09/09/17 17:38CULTURE ANAEROBE FINAL 09/14/17 10:56111/12/16Mixed aerobic and anaerobic growth present. No Clostridiumspecies isolated.Moderate Bacteroides fragilisModerate Anaerobic gram negative carlos not B. fragilis [facility] Comment on above: Performed By: #### P T/AP, HEMDF ####[address] [address] CULTURE FUNGUSon 09-09-2017 CULTURE FUNGUS [facility] Patient name: DENISA FRIAS M.R.N.: [id number] : 1980 Age: 37 Sex: M Ord. Physician: SAM COFFMAN Location: [address] [place] [address] Copy to: SAM COFFMAN DISCHARGED: dm. Date: 09/08/17 MICROBIOLOGYORDER#: [id number] COLLECTED: 09/09/17 17:39SOURCE: Sterile fluid ABDOMINAL FLUID RECEIVED: 09/09/17 17:39CULTURE FUNGUS FINAL 10/02/17 07:38010/02/17No fungus isolated after [address] [facility] Comment on above: Performed By: #### P T/AP, HEMDF ####[address] [address] [place] [address] Hemogram w/ Autodiffon 09-09 Erythrocyte distribution width Auto Ratio (RBC) 13.3 % Normal 11.5-14.5 [facility] Comment on above: Performed By: #### P T/AP, BMP3, MG3, HEMMD OSEIIFF ####[place] [address] Erythrocytes (RBC) 4.24 10*6/uL Low 4.40-5.90 [facility] Comment on above: Performed By: #### P T/AP, BMP3, MG3, HEMDF, MDIFF ####[place] [address] Hematocrit (HCT) 38.5 % Low 40.0-52.0 [facility] Comment on above: Performed By: #### P T/AP, BMP3, MG3, HEMOSEI, IFF ####[place] [address] Hemoglobin mass conc (Bld) 13.1 g/dL Normal 13.0-18.0 [facility] Comment on above: Performed By: #### P T/AP, BMP3, MG3, HEMOSEI, MDIFF ####[address] [address] MCH 30.9 pg Normal 26.0-34.0 [facility] Comment on above: Performed By: #### P T/AP, BMP3, MG3, HEMDF, MDIFF ####[place] [address] MCHC mass conc (RBC) 34.0 % Normal 32.0-36.0 [facility] Comment on above: Performed By: #### P T/AP, BMP3, MG3, HEMDF, MDIFF ####[address] [address] MCV 90.8 fL Normal 80.0-98.0 [facility] Comment on above: Performed By: #### P T/AP, BMP3, MG3, HEMDF, MDIFF ####[place] [address] Platelet mean volume (PMV) 8.4 fL Normal 7.4-10.4 [facility] Comment on above: Performed By: #### P T/AP, BMP3, MG3, HEMMD OSEIIFF ####[address] [address] Platelets 263 10*3/uL Normal 140-440 [facility] Comment on above: Performed By: #### P T/AP, BMP3, MG3, HEMMD OSEIIFF ####[address] [address] WBC (Leukocytes) 15.4 10*3/uL High 3.6-10.7 [facility] Comment on above: Performed By: #### P T/AP, BMP3, MG3, HEMMD OSEIIFF ####[address] [address] Abs Baso Cnt 0.0 10*3/uL Normal 0.0-0.2 [facility] Comment on above: Performed By: #### P T/AP, HEMDF ####[address] [address] Basophils/100 WBC Auto (Bld) 0.1 % Normal [facility] Comment on above: Performed By: #### P T/AP, HEMDF ####[address] [address] Eosinophils 0.2 10*3/uL Normal 0.0-0.5 [facility] Comment on above: Performed By: #### P T/AP, HEMDF ####[address] [address] Eosinophils/100 leukocytes 0.9 % Normal [facility] Comment on above: Performed By: #### P T/AP, HEMDF ####[address] [address] Granulocytes/100 WBC (Bld) 81.6 % Normal [facility] Comment on above: Performed By: #### P T/AP, HEMDF ####[address] [address] Lymphocytes 1.4 10*3/uL Normal 1.0-4.3 [facility] Comment on above: Performed By: #### P T/AP, HEMDF ####[address] [place] [address] Lymphocytes/100 leukocytes 8.0 % Normal [facility] Comment on above: Performed By: #### P T/AP, HEMDF ####[address] [place] [address] Monocytes 1.6 10*3/uL High 0.0-0.8 [facility] Comment on above: Performed By: #### P T/AP, HEMDF ####[address] [place] [address] Monocytes/100 leukocytes 9.4 % Normal [facility] Comment on above: Performed By: #### P T/AP, HEMDF ####[address] [place] [address] Neutrophils 13.9 10*3/uL High 1.8-7.0 [facility] Comment on above: Performed By: #### P T/AP, HEMDF ####[address] [place] [address] Magnesiumon 09-09-2017 Magnesium 2.3 mg/dL Normal 1.6-2.3 [facility] Comment on above: Performed By: #### P T/AP, BMP3, MG3, HEMDF, MDIFF ####[address] [place] [address] Manual Diffon 09-09-2017 Abs Baso Cnt 0.0 10*3/uL Normal 0.0-0.2 [facility] Comment on above: Performed By: #### P T/AP, BMP3, MG3, HEMDF, MDIFF ####[address] [place] [address] Bands 12 % Normal [facility] Comment on above: Performed By: #### P T/AP, BMP3, MG3, HEMDF, MDIFF ####[address] [place] [address] Basophils/100 WBC Auto (Bld) 0 % Normal [facility] Comment on above: Performed By: #### P T/AP, BMP3, MG3, HEMDF, MDIFF ####[address] [address] Comment: SLIDE SCANNED Normal [facility] Comment on above: Performed By: #### P T/AP, BMP3, MG3, HEMDF, MDIFF ####[address] [address] Eosinophils 0.0 10*3/uL Normal 0.0-0.5 [facility] Comment on above: Performed By: #### P T/AP, BMP3, MG3, HEMDF, MDIFF ####[address] [address] Eosinophils/100 leukocytes 0 % Normal [facility] Comment on above: Performed By: #### P T/AP, BMP3, MG3, HEMDF, MDIFF ####[address] [address] Erythrocyte morphology NORMAL Normal [facility] Comment on above: Performed By: #### P T/AP, BMP3, MG3, HEMDF, MDIFF ####[address] [address] Lymphocytes 3.5 10*3/uL Normal 1.1-4.5 [facility] Comment on above: Performed By: #### P T/AP, BMP3, MG3, HEMDF, MDIFF ####[address] [address] Lymphocytes/100 leukocytes 6 % Normal [facility] Comment on above: Performed By: #### P T/AP, BMP3, MG3, HEMDF, MDIFF ####[address] [address] Lymphocytes/100 leukocytes 23 % Normal [facility] Comment on above: Performed By: #### P T/AP, BMP3, MG3, HEMDF, MDIFF ####[address] [address] Monocytes 1.8 10*3/uL High 0.2-1.1 [facility] Comment on above: Performed By: #### P T/AP, BMP3, MG3, HEMOSEI, IFF ####[address] [address] Monocytes/100 leukocytes 12 % Normal [facility] Comment on above: Performed By: #### P T/AP, BMP3, MG3, HEMOSEI, MDIFF ####[address] [address] Neutrophils 9.1 10*3/uL High 2.2-8.2 [facility] Comment on above: Performed By: #### P T/AP, BMP3, MG3, HEMOSEI, IFF ####[place] [address] Seg Neutrophils 47 % Normal [facility] Comment on above: Performed By: #### P T/AP, BMP3, MG3, MARIA EUGENIA, IFF ####[place] [address] Cells counted 100 Normal [facility] Comment on above: Performed By: #### P T/AP, BMP3, MG3, MD MARIA EUGENIAIFF ####[place] [address] Protimeon 09-09-2017 aPTT 25.1 s Normal 20.0-30.5 [facility] Comment on above: Result Comment: NOTE : The therapeutic time for Heparin anticoagulation,based on Xa activity inhibition, is an APTT of 46-80seconds. Performed By: #### P T/AP, BMP3, MG3, HEMOSEI, MDIFF ####[place] [address] INR Coag RelTime (PPP) 1.1 {INR} Normal 0.9-1.1 [facility] Comment on above: Result Comment: Jorge mmended Anticoagulant Therapy:SEE BELOW----- INR of 2.0 - 3.0 :- Prophylaxis of Venous Thrombosis (high-risk surgery)- Treatment of Venous Thrombosis- Treatment of Pulmonary Embolism (Includes tissue heartvalves, Acute Myocardial Infarction to prevent systemicembolism, Valvular Heart Disease, and Atrial Fibrillation)----- INR of 2.5 - 3.5 :- Mechanical Prosthetic Valves (high risk)- If oral anticoagulant therapy is used to preventMyocardial Infarction Performed By: #### P T/CRYSTAL GARCIA, MGMARIA EUGENIA Faclon MDIFF ####[address] [place] [address] Prothrombin time (PT) Coag time (PPP) 10.9 s Normal 9.0-12.0 [facility] Comment on above: Result Comment: . Performed By: #### P T/AP, CRYSTAL, MGMARIA EUGENIA Falcon MDIFF ####[address] [place] [address] Chemistry Panel, POCon 09-08 Anion gap 9 mmol/L Normal 7-16 [facility] Comment on above: Performed By: #### C HMPC ####[address] [place] [address] Chloride 103 mmol/L Normal 98-107 [facility] Comment on above: Performed By: #### C HMPC ####[address] [place] [address] CO2 25 mmol/L Normal 22-30 [facility] Comment on above: Performed By: #### C HMPC ####[address] [place] [address] Creatinine 0.88 mg/dL Normal 0.52-1.25 [facility] Comment on above: Performed By: #### C HMPC ####[address] [place] [address] eGFR (non-black) mL/min/{1.73_m2} Normal >60 [facility] Comment on above: Performed By: #### C HMPC ####[address] [place] [address] Glucose mass conc 94 mg/dL Normal 70-100 [facility] Comment on above: Performed By: #### C HMPC ####[address] [place] [address] Ionized Ca,Measured 4.4 mg/dL Normal 4.3-5.2 [facility] Comment on above: Result Comment: Perf ormed by FLORESITA ID: [id number], [place] Performed By: #### C HMPC ####[address] [place] [address] Potassium molar conc 3.4 mmol/L Low 3.5-5.1 [facility] Comment on above: Performed By: #### C HMPC ####[address] [place] [address] Sodium 136 mmol/L Normal 133-145 [facility] Comment on above: Performed By: #### C HMPC ####[address] [address] Hemogram w/ Autodiffon 09-08 Erythrocyte distribution width Auto Ratio (RBC) 13.3 % Normal 11.5-14.5 [facility] Comment on above: Performed By: #### P T/AP, HEMDF ####[address] [place] [address] Erythrocytes (RBC) 4.80 10*6/uL Normal 4.40-5.90 [facility] Comment on above: Performed By: #### P T/AP, HEMDF ####[address] [address] Hematocrit (HCT) 43.7 % Normal 40.0-52.0 [facility] Comment on above: Performed By: #### P T/AP, HEMDF ####[address] [place] [address] Hemoglobin mass conc (Bld) 14.7 g/dL Normal 13.0-18.0 [facility] Comment on above: Performed By: #### P T/AP, HEMDF ####[address] [address] MCH 30.5 pg Normal 26.0-34.0 [facility] Comment on above: Performed By: #### P T/AP, HEMDF ####[address] [place] [address] MCHC mass conc (RBC) 33.5 % Normal 32.0-36.0 [facility] Comment on above: Performed By: #### P T/AP, HEMDF ####[address] [place] [address] MCV 91.1 fL Normal 80.0-98.0 [facility] Comment on above: Performed By: #### P T/AP, HEMDF ####[address] [place] [address] Platelet mean volume (PMV) 8.3 fL Normal 7.4-10.4 [facility] Comment on above: Performed By: #### P T/AP, HEMDF ####[address] [place] [address] Platelets 274 10*3/uL Normal 140-440 [facility] Comment on above: Performed By: #### P T/AP, HEMDF ####[address] [place] [address] WBC (Leukocytes) 17.1 10*3/uL High 3.6-10.7 [facility] Comment on above: Performed By: #### P T/AP, HEMDF ####[address] [place] [address] Protimeon 09-08-2017 INR Coag RelTime (PPP) 1.1 {INR} Normal 0.9-1.1 [facility] Comment on above: Result Comment: Jorge mmended Anticoagulant Therapy:SEE BELOW----- INR of 2.0 - 3.0 :- Prophylaxis of Venous Thrombosis (high-risk surgery)- Treatment of Venous Thrombosis- Treatment of Pulmonary Embolism (Includes tissue heartvalves, Acute Myocardial Infarction to prevent systemicembolism, Valvular Heart Disease, and Atrial Fibrillation)----- INR of 2.5 - 3.5 :- Mechanical Prosthetic Valves (high risk)- If oral anticoagulant therapy is used to preventMyocardial Infarction Performed By: #### P T/AP, HEMDF ####[address] [place] [address] Prothrombin time (PT) Coag time (PPP) 11.5 s Normal 9.0-12.0 [facility] Comment on above: Result Comment: . Performed By: #### P T/AP, HEMDF ####[id number] [place] [address] aPTT 25.5 s Normal 20.0-30.5 [facility] Comment on above: Result Comment: NOTE : The therapeutic time for Heparin anticoagulation,based on Xa activity inhibition, is an APTT of 46-80seconds. Performed By: #### P T/AP, HEMDF ####[address] [address] TS GELon 09-08-2017 TS GEL PATIENT: RODRIGUEZ PUTNAM LOC: 1EDE,1ENB,10BILL# : [id number] : 1980 SEX: M AGE: [id number] BY: CAMERON Feng ORDERED : 09/08/2017 19:02 COLLECTED: 09/08/2017 20:15ORDER : [id number] RECEIVED : 09/08/2017 20:48 -----TEST NAME RESULT UNITS RANGES ABN FL STABO Group O FRh, Gel POS FAntibody Screen Gel NEG F Normal [facility] Comment on above: Performed By: #### T SGL ####[address] [address] Encounters Encounter Date Encounter Type Care Provider Facility Start: 07-27-2024 Encounter for genera l adult medical examination without abnormal findings Emily Akers [facility] Start: 06-26-2024 End: 06-26-2024 ambulatory Emily Patelman Facility:[facility] Start: 07-12-2023 End: 07-12-2023 ambulatory [facility] Work Phone: Start: 07-12-2023 End: 07-12-2023 Patient encounter procedure [facility]-Laboratory, Specimen Work Phone: Start: 10-30-2017 Ambulatory Emily Hood [facility] Start: 10-23-2017 Ambulatory Emily Hood [facility] Start: 09-26-2017 Ambulatory Emily Hood [facility] Start: 09-08-2017 Evaluation and manag ement of inpatient UNKNOWN PROVIDER [facility] Payers Date Payer Category Payer Self-pay [id number] Unknown [id number] 2014 Private Health Insurance [employer] [id number] Unknown Unknown ANTHEM [id number] Unknown R JAHAIRA [id number] Unknown [id number] Social History Date Type Detail Facility Start: 09-07-2017 [facility] Start: 1980 Sex Assigned At Male W [facility] Evaluation note Note Date & Type Note Facility Evaluation note No assessment information availa ble [facility] Work Phone: Summary Purpose Family History No Family History Records FoundNo Family History Records Found Advance Directives No Advanced Directives Records Found Advance Directive Response Recorded Date/ Time Living Will No September 07 017 9:21pm Power of Screw Remover No September 07, 2017 9:21pm Chief Complaint and Reason for Visit Chief Complaint LESION EXCISION Additional Source Comments (unrecognized sect ion and content) No Status Records FoundNo Status Records Found INFORMATION SOURCE (unrecogn ized section and content) DATE CREATED AUTHOR 03/19/2018 [facility] DATE CREATED AUTHOR AUTHOR'S ORGANIZ ATION 07/29/2024 [facility] Care Teams (unrecognized sec tion and content) Team Status: Active Member Role Status Dates Dr. Emily Akers , DO Family Provider Active Dr. Emily Akers , DO Primary Care Provider Active Team Status: Inactive Member Role Status Dates Dr. Emily Akers , DO Primary Care Provider Active Dr. Lee Hollis MD Attending Provider, Referring Provider Active Goals (unrecognized section and content) Goals may be documented in a n alternate section FOR RECORDS PERTAINING TO PATIENTS WHO ARE OR HAVE BEEN ENROLLED IN A CHEMICAL DEPENDENCY/SUBSTANCEABUSE PROGRAM, SOME INFORMATION MAY BE OMITTED. This clinical summary was aggregated from multiple sources. Caution should be exercised in using it in the provision of clinical care. This summary normalizes information from multiple sources, and as a consequence, information in this document may materially change the coding, format and clinical context of patient data. In addition, data may be omitted in some cases. CLINICAL DECISIONS SHOULD BE BASED ON THE PRIMARY CLINICAL RECORDS. [employer] provides no warranty or guarantee of the accuracy or completeness of information in this document.
--- OUTSIDE RECORDS SUMMARY | 2025-04-09 18:21 | XMS RPT_ITS | CCD ---
Author Organization [facility] Care Team Providers Care Pit Clerk Name Role Phone PROVIDER, UNKNOWN Unavailable Unavailable [...] walnut allergenic extract Drug Allergy 09-04-2017 Swelling [facility] (2 sources) nut - unspecified; Translations: [nut - unspecified] Allergy to substance 10-25-2022 Anaphylaxis [facility] (1 source) walnut Drug allergy (disorder) 09-04-2017 [facility] Repository Problems Active Problems Problem Classification Problem [...] Onset: 10-23-2017 Episodic Other aftercare (2 sources) care home (current) use of antibiotics; Translations: [intermission coordinator (current) use of antibiotics] Onset: 09-08-2017 Episodic [...] Absolute Lymph 1.88 X10 3/uL Normal 0.83-4.51 [facility] Comment on above: Performed By: #### L 501.9985, L500.4100, L100.0100, L500.4050 #### [facility] [address] [facility] [place], [address] Absolute Neut 3.9 X10 3/uL Normal 2.0-7.7 [facility] Comment on above: Performed By: #### L 501.9985, L500.4100, L100.0100, L500.4050 #### [facility] [address] [place], [address] Basophils/100 WBC (Bld) 0.7 % Normal 0-1 [facility] Comment on above: Performed By: #### L 501.9985, L500.4100, L100.0100, L500.4050 #### [facility] [address] [place], [address] Eosinophils/100 WBC (Bld) 8.3 % High 0-5 [facility] Comment on above: Performed By: #### L 501.9985, L500.4100, L100.0100, L500.4050 #### [facility] [address] [place], [address] Erythrocyte distribution width (RBC) [Ratio] 13.1 % Normal 11.6-14.6 [facility] Comment on above: Performed By: #### L 501.9985, L500.4100, L100.0100, L500.4050 #### [facility] [address] [place], [address] Hematocrit (Bld) [Volume fraction] 44.2 % Normal 40-54 [facility] Comment on above: Performed By: #### L 501.9985, L500.4100, L100.0100, L500.4050 #### [facility] [address] [place], [address] Hemoglobin (Bld) [Mass/Vol] 14.9 g/dL Normal 13.0-16.5 [facility] Comment on above: Performed By: #### L 501.9985, L500.4100, L100.0100, L500.4050 #### [facility] [address] [place], [address] IG% 0.600 Normal 0.0-0.9 [facility] Comment on above: Result Comment: IG% - Immature Granulocytes (promyelocytes, myelocytes and metamyelocytes) > 1% indicates that a LEFT SHIFT is Present. Performed By: #### L 501.9985, L500.4100, L100.0100, L500.4050 #### [facility] [address] [place], [address] Lymphocytes/100 WBC (Bld) 26.5 % Normal 19-41 [facility] Comment on above: Performed By: #### L 501.9985, L500.4100, L100.0100, L500.4050 #### [facility] [address] [place], [address] MCH (RBC) [Entitic mass] 29.4 pg Normal 27.0-32.0 [facility] Comment on above: Performed By: #### L 501.9985, L500.4100, L100.0100, L500.4050 #### [facility] [address] [place], [address] MCHC (RBC) [Mass/Vol] 33.7 g/dL Normal 32-36 [facility] Comment on above: Performed By: #### L 501.9985, L500.4100, L100.0100, L500.4050 #### [facility] [address] [place], [address] MCV (RBC) [Entitic vol] 87.4 fL Normal 80-94 [facility] Comment on above: Performed By: #### L 501.9985, L500.4100, L100.0100, L500.4050 #### [facility] [address] [place], [address] Monocytes/100 WBC (Bld) 8.5 % Normal 0-10 [facility] Comment on above: Performed By: #### L 501.9985, L500.4100, L100.0100, L500.4050 #### [facility] [address] [place], [address] Neutrophils/100 WBC (Bld) 55.4 % Normal 47-70 [facility] Comment on above: Performed By: #### L 501.9985, L500.4100, L100.0100, L500.4050 #### [facility] [address] [place], [address] Nucleated RBC (Bld) [#/Vol] 0 10*3/uL Normal 0-5 [facility] Comment on above: Performed By: #### L 501.9985, L500.4100, L100.0100, L500.4050 #### [facility] [address] [place], [address] Platelet mean volume (Bld) [Entitic vol] 9.9 fL Normal 6.2-12.0 [facility] Comment on above: Performed By: #### L 501.9985, L500.4100, L100.0100, L500.4050 #### [facility] [address] [place], [address] Platelets (Bld) [#/Vol] 261 10*3/uL Normal 150-450 [facility] Comment on above: Performed By: #### L 501.9985, L500.4100, L100.0100, L500.4050 #### [facility] [address] [place], [address] RBC (Bld) [#/Vol] 5.06 10*6/uL Normal 4.6-6.2 [facility] Comment on above: Performed By: #### L 501.9985, L500.4100, L100.0100, L500.4050 #### [facility] [address] [place], [address] RDW SD 42.0 fl Normal 35.1-43.9 [facility] Comment on above: Performed By: #### L 501.9985, L500.4100, L100.0100, L500.4050 #### [facility] [address] [place], [address] WBC (Bld) [#/Vol] 7.1 10*3/uL Normal 4.4-11.0 [facility] Comment on above: Performed By: #### L 501.9985, L500.4100, L100.0100, L500.4050 #### [facility] [address] [place], [address] Comprehensive Metabolic Prof ilon 06-26-2024 Albumin [Mass/Vol] 3.4 g/dL Normal 3.2-5.0 [facility] Comment on above: Performed By: #### L 501.9985, L500.4100, L100.0100, L500.4050 #### [facility] [address] [place], [address] Albumin/Globulin [Mass ratio] 0.9 {ratio} Normal 0.9-2.4 [facility] Comment on above: Performed By: #### L 501.9985, L500.4100, L100.0100, L500.4050 #### [facility] [address] [place], [address] ALK P 70 U/L Normal 45-117 [facility] Comment on above: Performed By: #### L 501.9985, L500.4100, L100.0100, L500.4050 #### [facility] [address] [place], [address] ALT [Catalytic activity/Vol] 22 U/L Normal 16-61 [facility] Comment on above: Performed By: #### L 501.9985, L500.4100, L100.0100, L500.4050 #### [facility] [address] [place], [address] AST [Catalytic activity/Vol] 17 U/L Normal 15-37 [facility] Comment on above: Performed By: #### L 501.9985, L500.4100, L100.0100, L500.4050 #### [facility] [address] [place], [address] Bilirubin [Mass/Vol] 0.20 mg/dL Normal 0.20-1.00 [facility] Comment on above: Result Comment: For patients on eltrombopag therapy, use of Dimension [place] TBIL is not recommended. Performed By: #### L 501.9985, L500.4100, L100.0100, L500.4050 #### [facility] [address] [place], [address] BUN/CRE 11.3 RATIO Normal 10-20 [facility] Comment on above: Performed By: #### L 501.9985, L500.4100, L100.0100, L500.4050 #### [facility] [address] [place], [address] CA,Total 8.9 mg/dL Normal 8.5-10.1 [facility] Comment on above: Performed By: #### L 501.9985, L500.4100, L100.0100, L500.4050 #### [facility] [address] [place], [address] Chloride [Moles/Vol] 108 mmol/L High 98-107 [facility] Comment on above: Performed By: #### L 501.9985, L500.4100, L100.0100, L500.4050 #### [facility] [address] [place], [address] CO2 [Moles/Vol] 26.0 mmol/L Normal 21.0-32.0 [facility] Comment on above: Performed By: #### L 501.9985, L500.4100, L100.0100, L500.4050 #### [facility] [address] [place], [address] Creatinine [Mass/Vol] 0.98 mg/dL Normal 0.70-1.30 [facility] Comment on above: Result Comment: The validity of the calculated GFR GFRAA in patients over 70 years has not been determined. Clinical correlation is essential. Performed By: #### L 501.9985, L500.4100, L100.0100, L500.4050 #### [facility] [address] [place], [address] EST GFR - AA 108 mL/min Normal >60 [facility] Comment on above: Result Comment: Afri can Russian GFR Calc Performed By: #### L 501.9985, L500.4100, L100.0100, L500.4050 #### [facility] [address] [place], [address] GAP 5 Normal 5-15 [facility] Comment on above: Performed By: #### L 501.9985, L500.4100, L100.0100, L500.4050 #### [facility] [address] [place], [address] GFR/1.73 sq M.predicted among non-blacks MDRD (S/P/Bld) [Vol rate/Area] 90 mL/min/{1.73_m2} Normal >60 [facility] Comment on above: Result Comment: Non- GFR Calc Performed By: #### L 501.9985, L500.4100, L100.0100, L500.4050 #### [facility] [address] [place], [address] Globulin (S) [Mass/Vol] 3.8 g/dL Normal 2.2-4.2 [facility] Comment on above: Performed By: #### L 501.9985, L500.4100, L100.0100, L500.4050 #### [facility] [address] [place], [address] Glucose [Mass/Vol] 97 mg/dL Normal 74-106 [facility] Comment on above: Performed By: #### L 501.9985, L500.4100, L100.0100, L500.4050 #### [facility] [address] [place], [address] Potassium [Moles/Vol] 4.0 mmol/L Normal 3.5-5.1 [facility] Comment on above: Performed By: #### L 501.9985, L500.4100, L100.0100, L500.4050 #### [facility] [address] [place], [address] Sodium [Moles/Vol] 139 mmol/L Normal 136-145 [facility] Comment on above: Performed By: #### L 501.9985, L500.4100, L100.0100, L500.4050 #### [facility] [address] [place], [address] T PROT 7.2 g/dL Normal 6.4-8.2 [facility] Comment on above: Performed By: #### L 501.9985, L500.4100, L100.0100, L500.4050 #### [facility] [address] [place], [address] Urea nitrogen [Mass/Vol] 11 mg/dL Normal 7-18 [facility] Comment on above: Performed By: #### L 501.9985, L500.4100, L100.0100, L500.4050 #### [facility] [address] [place], [address] Hemoglobin A1con 06-26-2024 HbA1c (Bld) [Mass fraction] 5.2 % Normal 3.8-5.6 [facility] Comment on above: Result Comment: Norm al < 5.7 % Prediabetic 5.7 - 6.4 % Diabetic >or= 6.5 % Please note range changes. Performed By: #### L 501.9985, L500.4100, L100.0100, L500.4050 #### [facility] [address] [place], [address] Lipid Profileon 06-26-2024 Cholesterol [Mass/Vol] 161 mg/dL Normal 200 [facility] Comment on above: Result Comment: <200 mg/dL Desirable 200-240 mg/dL Borderline >240 mg/dL High Risk Performed By: #### L 501.9985, L500.4100, L100.0100, L500.4050 #### [facility] [address] [place], [address] Cholesterol in HDL [Mass/Vol] 38 mg/dL Low [facility] Comment on above: Result Comment: The drugs N-Acetylcysteine and Metamizole may falsely depress this assay. Reference Range HDL <40 mg/dL Low HDL Cholesterol HDL >or= 60 mg/dL High HDL Cholesterol Performed By: #### L 501.9985, L500.4100, L100.0100, L500.4050 #### [facility] [address] [place], [address] Cholesterol in LDL [Mass/Vol] 101 mg/dL Normal 0-130 [facility] Comment on above: Performed By: #### L 501.9985, L500.4100, L100.0100, L500.4050 #### [facility] [address] [place], [address] Cholesterol in VLDL [Mass/Vol] 22 mg/dL Normal 5-40 [facility] Comment on above: Performed By: #### L 501.9985, L500.4100, L100.0100, L500.4050 #### [facility] [address] [place], [address] Triglyceride [Mass/Vol] 111 mg/dL Normal [facility] Comment on above: Result Comment: The drugs N-Acetylcysteine and Metamizole may falsely depress this assay. Serum Triglycerides Reference Interval Normal <150 mg/dL Borderline high 150 - 199 mg/dL High 200 - 499 mg/dL Very High > or = 500 mg/dL Performed By: #### L 501.9985, L500.4100, L100.0100, L500.4050 #### [facility] [address] [place], [address] Surgical Pathologyon 02-05-2 018 Surgical Pathology [id number] [facility] PATHOLOGY AND LABORATORY MEDICINE [address] [place] [address] [place] [address] FINAL SURGICAL PATHOLOGY REPORT NAME: DENISA FRIAS .O.B.: 1980 37 Y M BILLJONH NO.: [id number]: [id number] PROCEDURE 10/30/2017 DATE:SURGEON: EMILY HOOD DO RECEIVED 10/30/2017 DATE:ATTENDING: EMILY HOOD DO REPORT DATE: 11/01/2017 COPIES TO: DIA GNOSIS:APPENDIX - ORGANIZING TRANSMURAL CHRONIC INFLAMMATION WITH FOREIGN BODYTYPE GIANT CELL REACTION.FOCAL ACUTE AND CHRONIC INFLAMMATION IN [place].NEGATIVE FOR MALIGNANCY.MN/MN JANINE BURGOS M.D. CL INICAL INFORMATION: Acute perforated appendicitisSPECIMEN: APPENDIX, INCIDENTAL ____GROSS DESCRIPTION:AppendixRece ived in formalin is a possible appendix measuring approximately 3.5x 1.0 cm. The mesoappendix measures 4.0 by up to 1.5 cm. There is astapled suture line present at the proximal line of resection. Upontransection, the appendix demonstrates a pinpoint lumen with a tanmucosa. Centrally there is a iurqmax-lcj-dfljvaz defect identifiedmeasuring approximately 0.6 cm. No evidence of fecalith or tumor isidentified. Multiple account maintenance representative sections are submitted in twocassettes. (bits ss, 2) JCK/MCDDisclaimer: The following statement applies to allimmunohistochemistry, in situ hybridization, molecular studies, andimmunofluorescence testing.The use of one or more reagents in the above tests is regulated as ananalyte specific reagent (ASR). These tests were developed and theirperformance characteristics determined by the clinical laboratories [facility]. They have not been cleared by [...] false negativity on decalcified specimens.Professional Performing Location: [address] [address] [place] [address]. DEPARTMENT OF PATHOLOGY AND LABORATORY MEDICINE [place], [place] [address] Normal [facility] Comment on above: Performed By: #### P T/AP, HEMDF ####[address] [place] [address] Basic Metabolic Panelon 09-26 Anion gap 10 mmol/L Normal [facility] Comment on above: Performed By: #### P T/AP, HEMDF ####[address] [place] [address] Calcium 10.0 mg/dL Normal 8.4-10.2 [facility] Comment on above: Performed By: #### P T/AP, HEMDF ####[address] [place] [address] CO2 29 mmol/L Normal 22-30 [facility] Comment on above: Performed By: #### P T/AP, HEMDF ####[address] [place] [address] Glucose mass conc 61 mg/dL Low 70-100 [facility] Comment on above: Performed By: #### P T/AP, HEMDF ####[address] [place] [address] Urea nitrogen 17 mg/dL Normal 7-20 [facility] Comment on above: Performed By: #### P T/AP, HEMDF ####[address] [place] [address] Creatinine 0.90 mg/dL Normal 0.52-1.25 [facility] Comment on above: Performed By: #### P T/AP, HEMDF ####[address] [place] [address] eGFR (black) mL/min/{1.73_m2} Normal >60 [facility] Comment on above: Performed By: #### P T/AP, HEMDF ####[address] [place] [address] eGFR (non-black) mL/min/{1.73_m2} Normal >60 [facility] Comment on above: Result Comment: Sour ce- MDRD equation with creatinine calibration to IDMS(NKDEP)eGFR not recommended for drug dose adjustment Performed By: #### P T/AP, HEMDF ####[address] [place] [address] Potassium molar conc 3.7 mmol/L Normal 3.5-5.1 [facility] Comment on above: Performed By: #### P T/AP, HEMDF ####[address] [place] [address] Sodium 141 mmol/L Normal 137-145 [facility] Comment on above: Performed By: #### P T/AP, HEMDF ####[address] [place] [address] Chloride 102 mmol/L Normal 98-107 [facility] Comment on above: Performed By: #### P T/AP, HEMDF ####[address] [place] [address] Hemoglobinon 10-23-2017 Hematocrit (HCT) 45.9 % Normal 40.0-52.0 [facility] Comment on above: Performed By: #### P T/AP, HEMDF ####[address] [place] [address] Hemoglobin mass conc (Bld) 15.6 g/dL Normal 13.0-18.0 [facility] Comment on above: Performed By: #### P T/AP, HEMDF ####[address] [place] [address] CT Abdomen/Pelvis w/ Contras ton 09-27-2017 CT Abdomen/Pelvis w/ Contrast Patient Name: DENISA FRIAS CT Exam Date/Time 09/26/2017 14:40:[address] Abdomen/Pelvis w/ IV Contrast (IV Onl Ordering Physician NOEMI ARBOLEDA HEATHER L Accession Number [id number] CPT4 Codes 57128 (CT Abdomen/Pelvis w/ IV Contrast (IV Onl), [...] Transcribed Date and Time: 09/26/2017 10:02 Normal [facility] Basic Metabolic Panelon 12-1 Anion gap 8 mmol/L Normal [facility] Comment on above: Performed By: #### P T/AP, HEMDF ####[address] [place] [address] Calcium 8.5 mg/dL Normal 8.4-10.2 [facility] Comment on above: Performed By: #### P T/AP, HEMDF ####[address] [place] [address] CO2 25 mmol/L Normal 22-30 [facility] Comment on above: Performed By: #### P T/AP, HEMDF ####[address] [place] [address] Glucose mass conc 83 mg/dL Normal 70-100 [facility] Comment on above: Performed By: #### P T/AP, HEMDF ####[address] [place] [address] Urea nitrogen 10 mg/dL Normal 7-20 [facility] Comment on above: Performed By: #### P T/AP, HEMDF ####[address] [place] [address] Creatinine 0.76 mg/dL Normal 0.52-1.25 [facility] Comment on above: Performed By: #### P T/AP, HEMDF ####[address] [place] [address] eGFR (black) mL/min/{1.73_m2} Normal >60 [facility] Comment on above: Performed By: #### P T/AP, HEMDF ####[address] [place] [address] eGFR (non-black) mL/min/{1.73_m2} Normal >60 [facility] Comment on above: Result Comment: Sour ce- MDRD equation with creatinine calibration to IDMS(NKDEP)eGFR not recommended for drug dose adjustment Performed By: #### P T/AP, HEMDF ####[address] [place] [address] Chloride 103 mmol/L Normal 98-107 [facility] Comment on above: Performed By: #### P T/AP, HEMDF ####[address] [place] [address] Potassium molar conc 3.8 mmol/L Normal 3.5-5.1 [facility] Comment on above: Performed By: #### P T/AP, HEMDF ####[address] [place] [address] Sodium 137 mmol/L Normal 137-145 [facility] Comment on above: Performed By: #### P T/AP, HEMDF ####[address] [place] [address] Hemogram w/ Autodiffon 09-11 Abs Baso Cnt 0.1 10*3/uL Normal 0.0-0.2 [facility] Comment on above: Performed By: #### P T/AP, HEMDF ####[address] [address] Basophils/100 WBC Auto (Bld) 0.6 % Normal [facility] Comment on above: Performed By: #### P T/AP, HEMDF ####[address] [place] [address] Eosinophils 0.4 10*3/uL Normal 0.0-0.5 [facility] Comment on above: Performed By: #### P T/AP, HEMDF ####[address] [address] Eosinophils/100 leukocytes 4.4 % Normal [facility] Comment on above: Performed By: #### P T/AP, HEMDF ####[address] [address] Erythrocyte distribution width Auto Ratio (RBC) 13.6 % Normal 11.5-14.5 [facility] Comment on above: Performed By: #### P T/AP, HEMDF ####[address] [address] Erythrocytes (RBC) 4.00 10*6/uL Low 4.40-5.90 [facility] Comment on above: Performed By: #### P T/AP, HEMDF ####[address] [address] Granulocytes/100 WBC (Bld) 63.5 % Normal [facility] Comment on above: Performed By: #### P T/AP, HEMDF ####[address] [address] Hematocrit (HCT) 36.1 % Low 40.0-52.0 [facility] Comment on above: Performed By: #### P T/AP, HEMDF ####[address] [address] Hemoglobin mass conc (Bld) 12.2 g/dL Low 13.0-18.0 [facility] Comment on above: Performed By: #### P T/AP, HEMDF ####[address] [place] [address] Lymphocytes 2.2 10*3/uL Normal 1.0-4.3 [facility] Comment on above: Performed By: #### P T/AP, HEMDF ####[address] [place] [address] Lymphocytes/100 leukocytes 21.7 % Normal [facility] Comment on above: Performed By: #### P T/AP, HEMDF ####[address] [place] [address] MCH 30.5 pg Normal 26.0-34.0 [facility] Comment on above: Performed By: #### P T/AP, HEMDF ####[address] [address] MCHC mass conc (RBC) 33.8 % Normal 32.0-36.0 [facility] Comment on above: Performed By: #### P T/AP, HEMDF ####[address] [place] [address] MCV 90.1 fL Normal 80.0-98.0 [facility] Comment on above: Performed By: #### P T/AP, HEMDF ####[address] [place] [address] Monocytes 1.0 10*3/uL High 0.0-0.8 [facility] Comment on above: Performed By: #### P T/AP, HEMDF ####[address] [place] [address] Monocytes/100 leukocytes 9.8 % Normal [facility] Comment on above: Performed By: #### P T/AP, HEMDF ####[address] [place] [address] Neutrophils 6.4 10*3/uL Normal 1.8-7.0 [facility] Comment on above: Performed By: #### P T/AP, HEMDF ####[address] [place] [address] Platelet mean volume (PMV) 8.1 fL Normal 7.4-10.4 [facility] Comment on above: Performed By: #### P T/AP, HEMDF ####[address] [place] [address] Platelets 251 10*3/uL Normal 140-440 [facility] Comment on above: Performed By: #### P T/AP, HEMDF ####[address] [place] [address] WBC (Leukocytes) 10.0 10*3/uL Normal 3.6-10.7 [facility] Comment on above: Performed By: #### P T/AP, HEMDF ####[address] [place] [address] Magnesiumon 09-11-2017 Magnesium 2.0 mg/dL Normal 1.6-2.3 [facility] Comment on above: Performed By: #### P T/AP, HEMDF ####[address] [place] [address] Basic Metabolic Panelon 08-25 Anion gap 9 mmol/L Normal [facility] Comment on above: Performed By: #### P T/AP, HEMDF ####[address] [place] [address] Calcium 8.4 mg/dL Normal 8.4-10.2 [facility] Comment on above: Performed By: #### P T/AP, HEMDF ####[address] [place] [address] CO2 26 mmol/L Normal 22-30 [facility] Comment on above: Performed By: #### P T/AP, HEMDF ####[address] [place] [address] Creatinine 0.82 mg/dL Normal 0.52-1.25 [facility] Comment on above: Performed By: #### P T/AP, HEMDF ####[address] [place] [address] eGFR (black) mL/min/{1.73_m2} Normal >60 [facility] Comment on above: Performed By: #### P T/AP, HEMDF ####[address] [place] [address] eGFR (non-black) mL/min/{1.73_m2} Normal >60 [facility] Comment on above: Result Comment: Sour ce- MDRD equation with creatinine calibration to IDMS(NKDEP)eGFR not recommended for drug dose adjustment Performed By: #### P T/AP, HEMDF ####[address] [place] [address] Glucose mass conc 68 mg/dL Low 70-100 [facility] Comment on above: Performed By: #### P T/AP, HEMDF ####[address] [place] [address] Urea nitrogen 12 mg/dL Normal 7-20 [facility] Comment on above: Performed By: #### P T/AP, HEMDF ####[address] [place] [address] Chloride 105 mmol/L Normal 98-107 [facility] [facility] Comment on above: Performed By: #### P T/AP, HEMDF ####[address] [place] [address] Potassium molar conc 3.7 mmol/L Normal 3.5-5.1 [facility] Comment on above: Performed By: #### P T/AP, HEMDF ####[address] [place] [address] Sodium 140 mmol/L Normal 137-145 [facility] Comment on above: Performed By: #### P T/AP, HEMDF ####[address] [place] [address] Hemogram w/ Autodiffon 09-10 Abs Baso Cnt 0.1 10*3/uL Normal 0.0-0.2 [facility] Comment on above: Performed By: #### P T/AP, HEMDF ####[address] [place] [address] Basophils/100 WBC Auto (Bld) 0.4 % Normal [facility] Comment on above: Performed By: #### P T/AP, HEMDF ####[address] [place] [address] Eosinophils 0.2 10*3/uL Normal 0.0-0.5 [facility] Comment on above: Performed By: #### P T/AP, HEMDF ####[address] [place] [address] Eosinophils/100 leukocytes 1.2 % Normal [facility] Comment on above: Performed By: #### P T/AP, HEMDF ####[address] [place] [address] Erythrocyte distribution width Auto Ratio (RBC) 13.2 % Normal 11.5-14.5 [facility] Comment on above: Performed By: #### P T/AP, HEMDF ####[address] [place] [address] Erythrocytes (RBC) 4.19 10*6/uL Low 4.40-5.90 [facility] Comment on above: Performed By: #### P T/AP, HEMDF ####[address] [place] [address] Granulocytes/100 WBC (Bld) 73.8 % Normal [facility] Comment on above: Performed By: #### P T/AP, HEMDF ####[address] [place] [address] Hematocrit (HCT) 37.6 % Low 40.0-52.0 [facility] Comment on above: Performed By: #### P T/AP, HEMDF ####[address] [place] [address] Hemoglobin mass conc (Bld) 12.8 g/dL Low 13.0-18.0 [facility] Comment on above: Performed By: #### P T/AP, HEMDF ####[address] [place] [address] Lymphocytes 2.1 10*3/uL Normal 1.0-4.3 [facility] Comment on above: Performed By: #### P T/AP, HEMDF ####[address] [address] Lymphocytes/100 leukocytes 14.6 % Normal [facility] Comment on above: Performed By: #### P T/AP, HEMDF ####[address] [address] MCH 30.5 pg Normal 26.0-34.0 [facility] Comment on above: Performed By: #### P T/AP, HEMDF ####[address] [place] [address] MCHC mass conc (RBC) 34.1 % Normal 32.0-36.0 [facility] Comment on above: Performed By: #### P T/AP, HEMDF ####[address] [address] MCV 89.5 fL Normal 80.0-98.0 [facility] Comment on above: Performed By: #### P T/AP, HEMDF ####[address] [address] Monocytes 1.4 10*3/uL High 0.0-0.8 [facility] Comment on above: Performed By: #### P T/AP, HEMDF ####[address] [address] Monocytes/100 leukocytes 10.0 % Normal [facility] Comment on above: Performed By: #### P T/AP, HEMDF ####[address] [address] Neutrophils 10.6 10*3/uL High 1.8-7.0 [facility] Comment on above: Performed By: #### P T/AP, HEMDF ####[address] [address] Platelet mean volume (PMV) 8.3 fL Normal 7.4-10.4 [facility] Comment on above: Performed By: #### P T/AP, HEMDF ####[address] [address] Platelets 238 10*3/uL Normal 140-440 [facility] Comment on above: Performed By: #### P T/AP, HEMDF ####[address] [place] [address] WBC (Leukocytes) 14.3 10*3/uL High 3.6-10.7 [facility] Comment on above: Performed By: #### P T/AP, HEMDF ####[address] [place] [address] Magnesiumon 09-10-2017 Magnesium 2.3 mg/dL Normal 1.6-2.3 [facility] Comment on above: Performed By: #### P T/AP, HEMDF ####[address] [address] Basic Metabolic Panelon 08-25 Calcium 8.2 mg/dL Low 8.4-10.2 [facility] Comment on above: Performed By: #### P T/AP, BMP3, MG3, HEMDFMDIFF ####[address] [address] Glucose mass conc 63 mg/dL Low 70-100 [facility] Comment on above: Performed By: #### P T/AP, BMP3, MG3, HEMMD OSEIIFF ####[address] [address] Anion gap 11 mmol/L Normal [facility] Comment on above: Performed By: #### P T/AP, BMP3, MG3, HEMDF, IFF ####[address] [place] [address] CO2 26 mmol/L Normal 22-30 [facility] Comment on above: Performed By: #### P T/AP, BMP3, MG3, HEMDF, IFF ####[address] [address] Creatinine 0.88 mg/dL Normal 0.52-1.25 [facility] Comment on above: Performed By: #### P T/AP, BMP3, MG3, HEMDF, MDIFF ####[address] [address] eGFR (black) mL/min/{1.73_m2} Normal >60 [facility] Comment on above: Performed By: #### P T/AP, BMP3, MG3, MD MARIA EUGENIAIFF ####[address] [address] [place] [address] eGFR (non-black) mL/min/{1.73_m2} Normal >60 [facility] Comment on above: Result Comment: Sour ce- MDRD equation with creatinine calibration to IDMS(NKDEP)eGFR not recommended for drug dose adjustment Performed By: #### P T/AP, BMP3, MG3, MD MARIA EUGENIAIFF ####[address] [address] [place] [address] Urea nitrogen 13 mg/dL Normal 7-20 [facility] Comment on above: Performed By: #### P T/AP, BMP3, MG3, MD MARIA EUGENIAIFF ####[address] [address] Chloride 102 mmol/L Normal 98-107 [facility] Comment on above: Performed By: #### P T/AP, BMP3, MG3, MD MARIA EUGENIAIFF ####[address] [place] [address] Potassium molar conc 4.3 mmol/L Normal 3.5-5.1 [facility] Comment on above: Performed By: #### P T/AP, BMP3, MG3, MD MARIA EUGENIAIFF ####[address] [place] [address] Sodium 138 mmol/L Normal 137-145 [facility] Comment on above: Performed By: #### P T/AP, BMP3, MG3, MD MARIA EUGENIAIFF ####[address] [place] [address] CT Drainage Peritoneal/Retro peritonealon 09-09-2017 CT Drainage Peritoneal/Retrope ritoneal Patient Name: DENISA FRIAS CT Exam Date/Time 09/09/2017 16:49:[address] Drainage Peritoneal Ordering Physician Hiwot BONNER JENNIFER Accession Number [id number] CPT4 Codes 73421 (CT Drainage Peritoneal/Retroperitoneal ), 81979 () Reason For Exam appendiceal abscess Report [...] within the collection. Following this, a 10 Swedish pigtail catheter was advanced over the wire [...] Transcribed Date and Time: 09/09/2017 6:09 Normal [facility] 09-09-2017 [facility] Patient name: DENISA FRIAS Estela.R.N.: [id number] : 1980 Age: 37 Sex: M Ord. Physician: SAM COFFMAN Location: [address] [place] [address] Copy to: SAM COFFMAN DISCHARGED: dm. Date: 09/08/17 MICROBIOLOGYORDER#: [id number] COLLECTED: 09/09/17 17:38SOURCE: Sterile fluid ABDOMINAL FLUID RECEIVED: 09/09/17 17:38STAIN GRAM FINAL 09/09/17 23:12111/10/16Many polymorphonuclear cells/lpf.Many gram positive cocci.Many gram positive bacilli.Many gram negative bacilli.CULTURE Many Streptococcus anginosus S. anginosus ANTIBIOTICS AGUSTIN INTRP A mpicillin <=0.25 S Ceftriaxone 0.5 S Clindamycin >=1 R Vancomycin 1 S S =SENSITIVE I=INTERMEDIATE R=RESISTANT S-DD=SUSCEPTIBLE DOSE DEPENDENT AGUSTIN VALUES = ug/mL ____ Normal [facility] Comment on above: Performed By: #### P T/AP, HEMDF ####[address] [address] [place] [address] CULTURE ANAEROBEon 7 CULTURE ANAEROBE [facility] Patient name: DENISA FRIAS M.R.N.: [id number] : 1980 Age: 37 Sex: M Ord. Physician: SAM COFFMAN Location: [address] [place] [address] Copy to: ASM COFFMAN DISCHARGED: . Date: 09/08/17 MICROBIOLOGYORDER#: [id number] COLLECTED: 09/09/17 17:38SOURCE: Sterile fluid ABDOMINAL FLUID RECEIVED: 09/09/17 17:38CULTURE ANAEROBE FINAL 09/14/17 10:56111/12/16Mixed aerobic and anaerobic growth present. No Clostridiumspecies isolated.Moderate Bacteroides fragilisModerate Anaerobic gram negative carlos not B. fragilis Group [facility] Comment on above: Performed By: #### P T/AP, HEMDF ####[address] [address] CULTURE FUNGUSon 09-09-2017 CULTURE FUNGUS [facility] Patient name: DENISA FRIAS M.R.N.: [id number] : 1980 Age: 37 Sex: M Ord. Physician: SAM COFFMAN Location: [address] [place] [address] Copy to: SAM COFFMAN DISCHARGED: dm. Date: 09/08/17 MICROBIOLOGYORDER#: [id number] COLLECTED: 09/09/17 17:39SOURCE: Sterile fluid ABDOMINAL FLUID RECEIVED: 09/09/17 17:39CULTURE FUNGUS FINAL 10/02/17 07:38010/02/17No fungus isolated after 21 days. [facility] Comment on above: Performed By: #### P T/AP, HEMDF ####[address] [address] [place] [address] Hemogram w/ Autodiffon 09-09 Erythrocyte distribution width Auto Ratio (RBC) 13.3 % Normal 11.5-14.5 [facility] Comment on above: Performed By: #### P T/AP, BMP3, MG3, HEMMD OSEIIFF ####[place] [address] Erythrocytes (RBC) 4.24 10*6/uL Low 4.40-5.90 [facility] Comment on above: Performed By: #### P T/AP, BMP3, MG3, HEMDF, MDIFF ####[place] [address] Hematocrit (HCT) 38.5 % Low 40.0-52.0 [facility] Comment on above: Performed By: #### P T/AP, BMP3, MG3, HEMOSEI, IFF ####[place] [address] Hemoglobin mass conc (Bld) 13.1 g/dL Normal 13.0-18.0 [facility] Comment on above: Performed By: #### P T/AP, BMP3, MG3, HEMOSEI, MDIFF ####[address] [address] MCH 30.9 pg Normal 26.0-34.0 [facility] Comment on above: Performed By: #### P T/AP, BMP3, MG3, HEMDF, MDIFF ####[place] [address] MCHC mass conc (RBC) 34.0 % Normal 32.0-36.0 [facility] Comment on above: Performed By: #### P T/AP, BMP3, MG3, HEMDF, MDIFF ####[address] [address] MCV 90.8 fL Normal 80.0-98.0 [facility] Comment on above: Performed By: #### P T/AP, BMP3, MG3, HEMDF, MDIFF ####[place] [address] Platelet mean volume (PMV) 8.4 fL Normal 7.4-10.4 [facility] Comment on above: Performed By: #### P T/AP, BMP3, MG3, HEMMD OSEIIFF ####[address] [address] Platelets 263 10*3/uL Normal 140-440 [facility] Comment on above: Performed By: #### P T/AP, BMP3, MG3, HEMMD OSEIIFF ####[address] [address] WBC (Leukocytes) 15.4 10*3/uL High 3.6-10.7 [facility] Comment on above: Performed By: #### P T/AP, BMP3, MG3, HEMMD OSEIIFF ####[address] [address] Abs Baso Cnt 0.0 10*3/uL Normal 0.0-0.2 [facility] Comment on above: Performed By: #### P T/AP, HEMDF ####[address] [address] Basophils/100 WBC Auto (Bld) 0.1 % Normal [facility] Comment on above: Performed By: #### P T/AP, HEMDF ####[address] [address] Eosinophils 0.2 10*3/uL Normal 0.0-0.5 [facility] Comment on above: Performed By: #### P T/AP, HEMDF ####[address] [address] Eosinophils/100 leukocytes 0.9 % Normal [facility] Comment on above: Performed By: #### P T/AP, HEMDF ####[address] [address] Granulocytes/100 WBC (Bld) 81.6 % Normal [facility] Comment on above: Performed By: #### P T/AP, HEMDF ####[address] [address] Lymphocytes 1.4 10*3/uL Normal 1.0-4.3 [facility] Comment on above: Performed By: #### P T/AP, HEMDF ####[address] [address] [place] [address] Lymphocytes/100 leukocytes 8.0 % Normal [facility] Comment on above: Performed By: #### P T/AP, HEMDF ####[address] [address] [place] [address] Monocytes 1.6 10*3/uL High 0.0-0.8 [facility] Comment on above: Performed By: #### P T/AP, HEMDF ####[address] [address] [place] [address] Monocytes/100 leukocytes 9.4 % Normal [facility] Comment on above: Performed By: #### P T/AP, HEMDF ####[address] [place] [address] Neutrophils 13.9 10*3/uL High 1.8-7.0 [facility] Comment on above: Performed By: #### P T/AP, HEMDF ####[address] [place] [address] Magnesiumon 09-09-2017 Magnesium 2.3 mg/dL Normal 1.6-2.3 [facility] Comment on above: Performed By: #### P T/AP, BMP3, MG3, HEMDF, MDIFF ####[address] [place] [address] Manual Diffon 09-09-2017 Abs Baso Cnt 0.0 10*3/uL Normal 0.0-0.2 [facility] Comment on above: Performed By: #### P T/AP, BMP3, MG3, HEMDF, MDIFF ####[address] [place] [address] Bands 12 % Normal [facility] Comment on above: Performed By: #### P T/AP, BMP3, MG3, HEMDF, MDIFF ####[address] [place] [address] Basophils/100 WBC Auto (Bld) 0 % Normal [facility] Comment on above: Performed By: #### P T/AP, BMP3, MG3, HEMDF, MDIFF ####[address] [address] Comment: SLIDE SCANNED Normal [facility] Comment on above: Performed By: #### P T/AP, BMP3, MG3, HEMDF, MDIFF ####[address] [address] Eosinophils 0.0 10*3/uL Normal 0.0-0.5 [facility] Comment on above: Performed By: #### P T/AP, BMP3, MG3, HEMDF, MDIFF ####[address] [address] Eosinophils/100 leukocytes 0 % Normal [facility] Comment on above: Performed By: #### P T/AP, BMP3, MG3, HEMDF, MDIFF ####[address] [address] Erythrocyte morphology NORMAL Normal [facility] Comment on above: Performed By: #### P T/AP, BMP3, MG3, HEMDF, MDIFF ####[address] [address] Lymphocytes 3.5 10*3/uL Normal 1.1-4.5 [facility] Comment on above: Performed By: #### P T/AP, BMP3, MG3, HEMDF, MDIFF ####[address] [address] Lymphocytes/100 leukocytes 6 % Normal [facility] Comment on above: Performed By: #### P T/AP, BMP3, MG3, HEMDF, MDIFF ####[address] [address] Lymphocytes/100 leukocytes 23 % Normal [facility] Comment on above: Performed By: #### P T/AP, BMP3, MG3, HEMDF, MDIFF ####[address] [address] Monocytes 1.8 10*3/uL High 0.2-1.1 [facility] Comment on above: Performed By: #### P T/AP, BMP3, MG3, HEMOSEI, IFF ####[address] [address] Monocytes/100 leukocytes 12 % Normal [facility] Comment on above: Performed By: #### P T/AP, BMP3, MG3, HEMOSEI, MDIFF ####[address] [address] Neutrophils 9.1 10*3/uL High 2.2-8.2 [facility] Comment on above: Performed By: #### P T/AP, BMP3, MG3, HEMOSEI, IFF ####[place] [address] Seg Neutrophils 47 % Normal [facility] Comment on above: Performed By: #### P T/AP, BMP3, MG3, MARIA EUGENIA, IFF ####[place] [address] Cells counted 100 Normal [facility] Comment on above: Performed By: #### P T/AP, BMP3, MG3, MD MARIA EUGENIAIFF ####[place] [address] Protimeon 09-09-2017 aPTT 25.1 s Normal 20.0-30.5 [facility] Comment on above: Result Comment: NOTE : The therapeutic time for Heparin anticoagulation,based on Xa activity inhibition, is an APTT of 46-80seconds. Performed By: #### P T/AP, BMP3, MG3, HEMOSEI, MDIFF ####[place] [address] INR Coag RelTime (PPP) 1.1 {INR} Normal 0.9-1.1 [facility] Comment on above: Result Comment: Jorge mmended [...] By: #### P T/CRYSTAL GARCIA, MGMARIA EUGENIA Falcon MDIFF ####[address] [address] [place] [address] Prothrombin time (PT) Coag time (PPP) 10.9 s Normal 9.0-12.0 [facility] Comment on above: Result Comment: . Performed By: #### P T/AP, CRYSTAL, MGMARIA EUGENIA Falcon MDIFF ####[address] [address] [place] [address] Chemistry Panel, POCon 09-08 Anion gap 9 mmol/L Normal 7-16 [facility] Comment on above: Performed By: #### C HMPC ####[address] [place] [address] Chloride 103 mmol/L Normal 98-107 [facility] Comment on above: Performed By: #### C HMPC ####[address] [address] [place] [address] CO2 25 mmol/L Normal 22-30 [facility] Comment on above: Performed By: #### C HMPC ####[address] [place] [address] Creatinine 0.88 mg/dL Normal 0.52-1.25 [facility] Comment on above: Performed By: #### C HMPC ####[address] [place] [address] eGFR (non-black) mL/min/{1.73_m2} Normal >60 [facility] Comment on above: Performed By: #### C HMPC ####[address] [place] [address] Glucose mass conc 94 mg/dL Normal 70-100 [facility] Comment on above: Performed By: #### C HMPC ####[address] [place] [address] Ionized Ca,Measured 4.4 mg/dL Normal 4.3-5.2 [facility] Comment on above: Result Comment: Perf ormed by FLORESITA ID: [id number] Performed By: #### C HMPC ####[address] [place] [address] Potassium molar conc 3.4 mmol/L Low 3.5-5.1 [facility] Comment on above: Performed By: #### C HMPC ####[address] [place] [address] Sodium 136 mmol/L Normal 133-145 [facility] Comment on above: Performed By: #### C HMPC ####[address] [address] Hemogram w/ Autodiffon 09-08 Erythrocyte distribution width Auto Ratio (RBC) 13.3 % Normal 11.5-14.5 [facility] Comment on above: Performed By: #### P T/AP, HEMDF ####[address] [place] [address] Erythrocytes (RBC) 4.80 10*6/uL Normal 4.40-5.90 [facility] Comment on above: Performed By: #### P T/AP, HEMDF ####[address] [address] Hematocrit (HCT) 43.7 % Normal 40.0-52.0 [facility] Comment on above: Performed By: #### P T/AP, HEMDF ####[address] [place] [address] Hemoglobin mass conc (Bld) 14.7 g/dL Normal 13.0-18.0 [facility] Comment on above: Performed By: #### P T/AP, HEMDF ####[address] [address] MCH 30.5 pg Normal 26.0-34.0 [facility] Comment on above: Performed By: #### P T/AP, HEMDF ####[address] [place] [address] MCHC mass conc (RBC) 33.5 % Normal 32.0-36.0 [facility] Comment on above: Performed By: #### P T/AP, HEMDF ####[address] [place] [address] MCV 91.1 fL Normal 80.0-98.0 [facility] Comment on above: Performed By: #### P T/AP, HEMDF ####[address] [address] [place] [address] Platelet mean volume (PMV) 8.3 fL Normal 7.4-10.4 [facility] Comment on above: Performed By: #### P T/AP, HEMDF ####[address] [place] [address] Platelets 274 10*3/uL Normal 140-440 [facility] Comment on above: Performed By: #### P T/AP, HEMDF ####[address] [place] [address] WBC (Leukocytes) 17.1 10*3/uL High 3.6-10.7 [facility] Comment on above: Performed By: #### P T/AP, HEMDF ####[address] [place] [address] Protimeon 09-08-2017 INR Coag RelTime (PPP) 1.1 {INR} Normal 0.9-1.1 [facility] Comment on above: Result Comment: Jorge mmended [...] Infarction Performed By: #### P T/AP, HEMDF ####[address] [address] [place] [address] Prothrombin time (PT) Coag time (PPP) 11.5 s Normal 9.0-12.0 [facility] Comment on above: Result Comment: . Performed By: #### P T/AP, HEMDF ####[address] [place] [address] aPTT 25.5 s Normal 20.0-30.5 [facility] Comment on above: Result Comment: NOTE : The therapeutic time for Heparin anticoagulation,based on Xa activity inhibition, is an APTT of 46-80seconds. Performed By: #### P T/AP, HEMDF ####[address] [address] TS GELon 09-08-2017 TS GEL PATIENT: RODRIGUEZ PUTNAM LOC: 1EDE,1ENB,10BILL# : [id number] : 1980 SEX: M AGE: [id number] BY: CAMERON Feng ORDERED : 09/08/2017 19:02 COLLECTED: 09/08/2017 20:15ORDER : [id number] RECEIVED : 09/08/2017 20:48 -----TEST NAME RESULT UNITS RANGES ABN FL STABO Group O FRh, Gel POS FAntibody Screen Gel NEG F Normal [facility] Comment on above: Performed By: #### T SGL ####[address] [address] Encounters Encounter Date Encounter Type Care Provider Facility Start: 07-27-2024 Encounter for genera l adult medical examination without abnormal findings Emily Akers [facility] Start: 06-26-2024 End: 06-26-2024 ambulatory Emily Patelman Facility:[facility] Start: 07-12-2023 End: 07-12-2023 ambulatory [facility] Work Phone: Start: 07-12-2023 End: 07-12-2023 Patient encounter procedure [facility], Specimen Work Phone: Start: 10-30-[address] [facility] Start: 10-23-[address] [facility] Start: 09-26-[address] [facility] Start: 09-08-2017 Evaluation and manag ement of inpatient UNKNOWN PROVIDER [facility] Payers Date Payer Category Payer Self-pay [id number] Unknown [id number] 2014 Private Health Insurance [employer] [id number] Unknown Unknown ANTHEM [id number] Unknown R JAHAIRA [id number] Unknown [id number] Social History Date Type Detail Facility [facility]: 09[facility]07-2017 [facility] Start: 1980 Sex Assigned At Male [facility] Evaluation note Note Date & Type Note Facility Evaluation note No assessment information availa ble [facility] Work Phone: Summary Purpose Family History No Family History Records FoundNo Family History Records Found Advance Directives No Advanced Directives Records Found Advance Directive Response Recorded Date/ Time Living Will No September 07 017 9:21pm Power of Commissary Assistant No September 07, 2017 9:21pm Chief Complaint and Reason for Visit Chief Complaint LESION EXCISION Additional Source Comments (unrecognized sect ion and content) No Status Records FoundNo Status Records Found INFORMATION SOURCE (unrecogn ized section and content) DATE CREATED AUTHOR 03/19/2018 [facility] DATE CREATED AUTHOR AUTHOR'S ORGANIZ ATION 07/29/2024 [facility] Care Teams (unrecognized sec tion and content) [...] BE BASED ON THE PRIMARY CLINICAL RECORDS. [employer] provides no warranty or guarantee of the accuracy or completeness of information in this document.
[2025-04-11 08:08] LABS: Immunoglobulin A 277 mg/dL (90-386)
== END | disposition home or self-care (01) ==
PROVIDERS: PCP Family Medicine; Visit Provider Family Medicine
DX: R10.9 Unspecified abdominal pain (principal); R35.89 Other polyuria; R63.5 Abnormal weight gain
CPT/HCPCS: 36415; 80053; 82784; 83036; 83516; 84443; 85025; 86255

== ENCOUNTER → 2025-04-10 | Outpatient (CLI) | payer BC, SELFPAY ==
[2025-04-10 12:24] LABS: Color, Urine Yellow (Yellow); Glucose, Dipstick Normal (Normal); Ketone-Dipstick Negative (Negative); Leukocyte Esterase-Dipstick Negative /ul (Negative); Nitrite-Dipstick Negative (Negative); Occult Blood-Urine Negative /ul (Negative); Protein-Dipstick 30 mg/dl (Negative); Specific Gravity, Urine 1.020 (1.002-1.030); Urine Bilirubin Dipstick Negative (Negative)
== END | disposition home or self-care (01) ==
LOC: LABSPEC 10:38
PROVIDERS: PCP Family Medicine; Visit Provider Family Medicine
DX: R35.89 Other polyuria (principal); R63.5 Abnormal weight gain; R10.9 Unspecified abdominal pain
CPT/HCPCS: 81002